=== PATIENT | male | born 1960 | race Caucasian/White ===

== ENCOUNTER → 2017-04-09 | Outpatient (CLI) | payer MEDICARE ==
[2017-04-09 11:31] LABS: ARTERIAL BLOOD BASE EXCESS 5.8 mmol/L; ARTERIAL BLOOD O2 SATURATION 64.6 % (94-98)
== END ==
LOC: OD 11:01
PROVIDERS: ATTEND Internal Medicine Pulmonary Disease
DX: E66.2 Morbid (severe) obesity with alveolar hypoventilation (principal)
CPT/HCPCS: 36600; 82803

== ENCOUNTER 2018-02-07 22:38 | Inpatient (IN) | payer MEDICARE ==
[2018-02-07] MEDS ORDERED: PIPERACILLIN/TAZOBACTAM 3.375 GM VIAL IV ONE (23:21)
[2018-02-07] MEDS ORDERED: VANCOMYCIN HCL INJ 1000 MG VIAL IV ONE (23:21)
--- NOTE | 2018-02-07 23:22 | ER Document Report ---
ED General - General Chief Complaint: Foot Injury Stated Complaint: ALTERED MENTAL STATUS Time Seen by Provider: 02/07/18 22:54 Mode of Arrival: Medic Information source: Patient, Relative - She is noted he has 1 still is actually is I or a's PIR a.m. or a CAD probably IN the TRAVEL OUTSIDE OF THE [place] IN LAST 30 DAYS: No - HPI Notes: Patient is a 57-year-old insulin-dependent diabetic with history of CHF and uncontrolled atrial fibrillation presents emergency department with report of right foot foul-smelling wound that is progressed over the last 2 weeks. He has sensation in the leg and foot, and denies any specific pain or injury that he is aware of. The patient has noted some drainage from the wound and had a fever of 100.5 and was altered at home when family called for EMS. They found the patient to have a temperature of 100.5 and blood sugar 263 with blood pressure 98 rising to 116/88 with fluid bolus. The patient was given 300 normal saline while in route by EMS with Tylenol 975 and arrived afebrile and alert and oriented to person place president and time. Family states he is no longer acting altered. The patient did not realize he was somewhat confused earlier. The patient denies any focal numbness or weakness. He reports no chest pain or shortness of breath or cough. He does report mild dysuria. Patient denies any other skin breakdown. He has a history of previous osteomyelitis of the left hand status post surgical resection of the fourth digit and metacarpal in July 2017. - Related Data Allergies/Adverse Reactions: No Known Allergies Allergy (Unverified 02/07/18 23:02) Past Medical History - General Information source: Patient, Relative - Social History Smoking Status: Never Smoker Frequency of alcohol use: None Drug Abuse: None Lives with: Family Family History: Reviewed & Not Pertinent Review of Systems - Review of Systems Notes: REVIEW OF SYSTEMS: CONSTITUTIONAL : Patient was unaware of any fever, but had temperature 100.5 per EMS. EENT: Denies eye, ear, throat, or mouth pain or symptoms. Denies nasal or sinus congestion or discharge. Denies throat, tongue, or mouth swelling or difficulty swallowing. CARDIOVASCULAR: Denies chest pain. Denies palpitations or racing or irregular heart beat. Denies ankle edema. RESPIRATORY: Denies cough, cold, or chest congestion. Denies shortness of breath, difficulty breathing, or wheezing. GASTROINTESTINAL: Denies abdominal pain or distention. Denies nausea, vomiting , or diarrhea. Denies blood in vomitus, stools, or per rectum. Denies black, tarry stools. Denies constipation. GENITOURINARY: Denies difficulty urinating, painful urination, burning, frequency, blood in urine, or discharge. MUSCULOSKELETAL: Denies back or neck pain or stiffness. Denies joint pain or swelling. SKIN: Reports progression of 2 weeks of a sore on the right foot. HEMATOLOGIC : Denies easy bruising or bleeding. LYMPHATIC: Denies swollen, enlarged glands. NEUROLOGICAL: Denies passing out or loss of consciousness. Denies dizziness or lightheadedness. Denies headache. Denies weakness or paralysis or loss of use of either side. Denies problems with gait or speech. Denies sensory loss, numbness, or tingling. Denies seizures. PSYCHIATRIC: Denies anxiety or stress. Denies depression, suicidal ideation, or homicidal ideation. ALL OTHER SYSTEMS REVIEWED AND NEGATIVE. Dictation was performed using [employer] voice recognition software Physical Exam - Vital signs Vitals: Temp Pulse Resp BP Pulse Ox 98.0 F 83 14 111/64 96 02/07/18 22:45 02/07/18 22:45 02/07/18 22:45 02/07/18 22:45 02/07/18 22:45 - Notes Notes: PHYSICAL EXAMINATION: GENERAL: Somewhat diaphoretic, no obvious distress. HEAD: Atraumatic, normocephalic. EYES: Pupils equal round and reactive to light, extraocular movements intact, sclera anicteric, conjunctiva are normal. ENT: Nares patent, oropharynx clear without exudates. Moist mucous membranes. NECK: Normal range of motion, supple without lymphadenopathy LUNGS: Breath sounds clear to auscultation bilaterally and equal. No wheezes rales or rhonchi. HEART: Regular rate with irregular rhythm consistent with history of atrial fibrillation, 1/6 systolic ejection murmur best auscultated over the apex. ABDOMEN: Soft, nontender, nondistended abdomen. No guarding, no rebound. No masses appreciated. Musculoskeletal: Normal range of motion, no pitting or edema. No cyanosis. NEUROLOGICAL: Cranial nerves grossly intact. Normal speech. Normal motor exams. Sensory mild diminished distally along the toes. PSYCH: Normal mood, normal affect. SKIN: Healed wound on the left hand from previous surgical resection of the fourth finger and metacarpal. Patient has a open stage IV wound to the right lateral foot with surrounding cellulitis that extends through the foot. Patient has 2+ edema left lower extremity with 3+ edema right lower extremity. There is no ascending cellulitis proximal to the ankle. There is no palpable cord. There is a foul odor to the open wound which measures approximately 5 cm x 3 cm to the lateral foot. I am able to appreciate DP pulses on both sides although somewhat weak. Course - Re-evaluation Re-evalutation: 02/07/18 23:33 Blood cultures and lactic acid taken prior to the patient receiving IV Zosyn and vancomycin to cover for possible Pseudomonas versus MRSA infection with diabetic foot ulcer. Discussed with patient and family the need for the patient be admitted for further evaluation and management for diabetic foot ulcer. Also discussed with the patient the possibility that he may require amputation in order to appropriately treat this wound. 02/08/18 02:02 Digoxin level is therapeutic and INR is therapeutic. Patient has evidence for acute kidney injury with a question of dehydration, but there is an elevated BNP at 7600 with patient's chronic history of CHF. The patient has received 650 cc of fluids from EMS combined with antibiotic administration of Zosyn and vancomycin. Current blood pressure is 112/70. Lactic acid is normal without evidence for sepsis. There is no gross evidence for CHF on chest x-ray, but patient has cardiomegaly with a history of CHF. Discussion was undertaken with surgery Dr. Kelley, and he agreed to consult on the patient, but he requested hospitalist consultation and admission and requested possible reversal of anticoagulation and echocardiogram. Discussion was undertaken with the hospitalist Dr. Foreman who agreed to evaluate the patient further. 02/08/18 02:05 02/08/18 02:22 - Vital Signs Vital signs: Temp Pulse Resp BP Pulse Ox 98.0 F 83 14 111/64 96 02/07/18 22:45 02/07/18 22:45 02/07/18 22:45 02/07/18 22:45 02/07/18 22:45 - Laboratory Result Diagrams: 02/07/18 23:21 02/07/18 23:21 Laboratory results interpreted by me: 02/07/18 02/07/18 02/07/18 23:21 23:21 23:21 WBC 18.1 H Hgb 11.3 L Hct 35.2 L MCV 72 L MCH 23.1 L RDW 15.3 H Seg Neuts % (Manual) 80 H Lymphocytes % (Manual) 11 L Abs Neuts (Manual) 14.5 H Abs Monocytes (Manual) 1.6 H PT 31.3 H Sodium 127.1 L Chloride 84 L Carbon Dioxide 34 H BUN 54 H Creatinine 1.65 H Est GFR ( Amer) 52 L Est GFR (Non-Af Amer) 43 L Glucose 250 H POC Glucose ALT 13 L Alkaline Phosphatase 162 H NT-Pro-B Natriuret Pep Albumin 3.0 L 02/07/18 0418 23:21 01:18 WBC Hgb Hct MCV MCH RDW Seg Neuts % (Manual) Lymphocytes % (Manual) Abs Neuts (Manual) Abs Monocytes (Manual) PT Sodium Chloride Carbon Dioxide BUN Creatinine Est GFR ( Amer) Est GFR (Non-Af Amer) Glucose POC Glucose 269 H ALT Alkaline Phosphatase NT-Pro-B Natriuret Pep 7600 H Albumin - EKG Interpretation by Me Rhythm: A.Fib Additional EKG results interpreted by me: 02/07/18 23:57 EKG as interpreted by me showed atrial fibrillation with controlled ventricular response rate of 76. There is no gross evidence for acute MS or ischemia noted. No old EKG available for comparison. Critical Care Note - Critical Care Note Total time excluding time spent on procedures (mins): 48 Discharge - Discharge Clinical Impression: Acute kidney injury (nontraumatic), Hyperglycemia Diabetic foot ulcer Qualifiers: Diabetic foot ulcer location: midfoot Diabetes mellitus type: type 1 Laterality : right Non-pressure ulcer stage: with necrosis of bone Qualified Code(s): E10.621 - Type 1 diabetes mellitus with foot ulcer Osteomyelitis Qualifiers: Osteomyelitis type: other acute Osteomyelitis location: foot Laterality: right Qualified Code(s): M86.171 - Other acute osteomyelitis, right ankle and foot A-fib Qualifiers: Atrial fibrillation type: chronic Qualified Code(s): I48.2 - Chronic atrial fibrillation Fever Qualifiers: Fever type: due to other condition Qualified Code(s): R50.81 - Fever presenting with conditions classified elsewhere Condition: Fair Disposition: ADMITTED INPATIENT Admitting Provider: Hospitalist Unit Admitted: [facility]
[2018-02-07 23:42] LABS: HEMATOCRIT 35.2 % (37.9-51.0); HEMOGLOBIN 11.3 g/dL (13.5-17.0); MEAN CORPUSCULAR HEMOGLOBIN 23.1 pg (27.0-33.4); MEAN CORPUSCULAR HGB CONC 32.2 g/dL (32.0-36.0); MEAN CORPUSCULAR VOLUME 72 fl (80-97); PLATELET COUNT 278 10^3/uL (150-450); RED CELL DISTRIBUTION WIDTH 15.3 % (11.5-14.0); WHITE BLOOD COUNT 18.1 10^3/uL (4.0-10.5)
[2018-02-07 23:49] LABS: INTERNATIONAL RATION (INR) 2.85; PROTHROMBIN TIME 31.3 SEC (11.4-15.4)
[2018-02-08 00:04] LABS: NT PRO BNP 7600 pg/mL (5-900)
[2018-02-08 00:06] LABS: TROPONIN I < 0.012 ng/mL
[2018-02-08 00:12] LABS: ABSOLUTE MONOCYTES # (MANUAL) 1.6 10^3/uL (0.1-1.4); ABSOLUTE NEUTROPHILS# (MANUAL) 14.5 10^3/uL (1.7-8.2); BASOPHILS % (MANUAL) 0 % (0-2); EOSINOPHILS % (MANUAL) 0 % (0-6); LYMPHOCYTES % (MANUAL) 11 % (13-45); MONOCYTES % (MANUAL) 9 % (3-13); SEGMENTED NEUTROPHILS % (MAN) 80 % (42-78); TOTAL CELLS COUNTED 100
[2018-02-08 00:13] LABS: ANISOCYTOSIS SLIGHT; HYPOCHROMASIA 1+; PLATELET COMMENT ADEQUATE; PLATELET LARGE PRESENT; POLYCHROMASIA SLIGHT
[2018-02-08 00:20] LABS: ALANINE AMINOTRANSFERASE 13 U/L (21-72); ALKALINE PHOSPHATASE 162 U/L (38-126); ANION GAP 9 (5-19); ASPARTATE AMINO TRANSFERASE 18 U/L (17-59); BILIRUBIN,DIRECT 0.3 mg/dL (0.0-0.4); BILIRUBIN,TOTAL 0.9 mg/dL (0.2-1.3); BLOOD UREA NITROGEN 54 mg/dL (7-20); CALCIUM 8.8 mg/dL (8.4-10.2); CARBON DIOXIDE 34 mmol/L (22-30); CHLORIDE 84 mmol/L (98-107); DIGOXIN 0.94 ng/mL (0.8-2.0); GLUCOSE 250 mg/dL (75-110); POTASSIUM 4.4 mmol/L (3.6-5.0); SODIUM 127.1 mmol/L (137-145); TOTAL PROTEIN 6.8 g/dL (6.3-8.2)
--- NOTE | 2018-02-08 00:29 | RADIOLOGY REPORT (SQ) ---
EXAM DESCRIPTION: CHEST SINGLE VIEW CLINICAL HISTORY: fever COMPARISON: None. FINDINGS: Single frontal view of the chest. Leads overlie the chest. Tortuosity of thoracic aorta. Cardiomegaly. No consolidation, pneumothorax, or pleural effusion. No displaced rib fractures identified. Upper abdominal soft tissues are unremarkable. IMPRESSION: 1. No acute pulmonary process identified. Cardiomegaly.
--- NOTE | 2018-02-08 00:42 | RADIOLOGY REPORT (SQ) ---
EXAM DESCRIPTION: FOOT RIGHT 2 VIEWS CLINICAL HISTORY: R foot cellulitis / ?osteo COMPARISON: None. FINDINGS: 2 views of the right foot. No acute fracture or dislocation. Osseous destruction of the fifth metatarsal and base of the fifth proximal phalanx with adjacent soft tissue edema/ulcer. Osteopenia. Hallux valgus deformity. Plantar calcaneal spur. Atherosclerotic ossification IMPRESSION: 1. Osseous destruction of the fifth metatarsal and base of the proximal fifth phalanx. These findings suggest osteomyelitis. Correlation with contrast-enhanced MRI could provide additional characterization.
--- NOTE | 2018-02-08 00:50 | PDOC H&P ---
General Chief Complaint: Pains right foot - Diagnosis (1) A-fib Is this a Current Diagnosis?: Yes - Current Medications/Allergies Allergies/Adverse Reactions: No Known Allergies Allergy (Unverified 02/07/18 23:02) Past Medical History Cardiac Medical History: Reports: Atrial Fibrillation, Congestive Heart Failure , Hypertension Endocrine Medical History: Reports: Diabetes Mellitus Type 2 Past Surgical History Past Surgical History: Reports: Orthopedic Surgery - left 4th finger amputation 2016 at [facility]. Due to osteomyeli Family History Family History: Reviewed & Not Pertinent Parental Family History Reviewed: Yes - mother had DM and of Ca Children Family History Reviewed: No Sibling(s) Family History Reviewed.: No Social History Lives with: Family Smoking Status: Never Smoker - Advance Directive Resuscitation Status: Full Code Physical Exam Vital Signs: Temp Pulse Resp BP Pulse Ox 98.0 F 83 14 111/64 96 02/07/18 22:45 02/07/18 22:45 02/07/18 22:45 02/07/18 22:45 02/07/18 22:45 Intake & Output 02/06/18 02/07/18 02/08/18 06:59 06:59 06:59 Weight 131.088 kg General appearance: PRESENT: mild distress, obese Head exam: PRESENT: atraumatic Eye exam: PRESENT: conjunctiva pink Mouth exam: PRESENT: moist Neck exam: PRESENT: full ROM Respiratory exam: PRESENT: clear to auscultation terra Cardiovascular exam: PRESENT: RRR Pulses: PRESENT: normal radial pulses Vascular exam: PRESENT: normal capillary refill GI/Abdominal exam: PRESENT: soft - non tender Rectal exam: PRESENT: deferred Extremities exam: PRESENT: full ROM Musculoskeletal exam: PRESENT: ambulatory Neurological exam: PRESENT: alert, oriented to person, oriented to place, oriented to time, oriented to situation Psychiatric exam: PRESENT: appropriate affect Skin exam: PRESENT: erythema - Right lateral foot with a 5x8 cm ulcer with dark discoloration the whole ulcer with possible bone exposed. There is some redness around the foot ulcer. There is erythema on the dorsum of the foot Impression/Plan Impression: Diabetic ulceration right lateral foot Plan: Hydrate and start IV antibiotics Correct coumadin effect and hold coumadin Correct BS and other lab abnormality Consult Hospitalist for DM and A fib
[2018-02-08] MEDS ORDERED: DEXTROSE 40% GEL 15 GM TUBE PO PRN ×2 (01:06)
[2018-02-08] MEDS ORDERED: DEXTROSE 50%-WATER 25 GM/50 ML DISP.SYRIN IV PRN ×2 (01:06)
[2018-02-08] MEDS ORDERED: GLUCAGON,HUMAN RECOMB 1 MG INJ IM PRN (01:06)
[2018-02-08] MEDS ORDERED: NORMAL SALINE 1000 ML 1,000 ML IV PRN ×2 (01:15→13:37)
[2018-02-08 03:39] LABS: ARTERIAL BLOOD BASE EXCESS 4.1 mmol/L; ARTERIAL BLOOD H2CO3 1.39 mmol/L (1.05-1.35); ARTERIAL BLOOD HCO3 29.2 mmol/L (20-26); ARTERIAL BLOOD PCO2 46.1 mmHg (35-45); ARTERIAL BLOOD PH 7.42 (7.35-7.45); ARTERIAL BLOOD PO2 80.4 mmHg (80-100); ARTERIAL BLOOD TOTAL CO2 30.6 mmol/L (23-27)
[2018-02-08 03:41] LABS: ARTERIAL BLOOD FIO2 ROOM AIR
--- NOTE | 2018-02-08 04:00 | PDOC H&P ---
History of Present Illness Admission Date/PCP: 02/08/18 03:38 Patient complains of: Altered mental status History of Present Illness: GERALDINE TIRADO is a 57 year old male with past medical history of insulin- dependent diabetes, congestive heart failure, atrial fibrillation on Coumadin, chronic pain on morphine, osteomyelitis of the left hand and right foot, obesity and debility. In the emergency room he is found to have hypotension that responded to bolus, a fever of 100.5, right foot diabetic foot ulcer which is foul-smelling with necrotic exudate. His mental status has returned to baseline without intervention. Denies deficits or weakness. Labs reveal prerenal azotemia, acute renal failure, hyponatremia and he is referred to the hospitalist for admission. He denies recent change in medications including Zanaflex and morphine. Past Medical History Cardiac Medical History: Reports: Atrial Fibrillation, Congestive Heart Failure , Hypertension Pulmonary Medical History: Reports: None EENT Medical History: Reports: None Neurological Medical History: Reports: None Endocrine Medical History: Reports: Diabetes Mellitus Type 2, Obesity Renal/ Medical History: Reports: None Malignancy Medical History: Reports: None GI Medical History: Reports: None Musculoskeltal Medical History: Reports: Other - Osteomyelitis of the left hand and right foot Skin Medical History: Reports: Other - Multiple poorly healed ulcers of the hands bilaterally and right foot Psychiatric Medical History: Reports: None Denies: Alcohol Dependency, Attention Deficit Hyperactivity Disorder Traumatic Medical History: Reports: None Hematology: Reports: None Infectious Medical History: Reports: None Past Surgical History Past Surgical History: Reports: Orthopedic Surgery - left 4th finger amputation 2016 at [facility]. Due to osteomyeli Social History Information Source: Patient, [facility] Records Lives with: Family Smoking Status: Never Smoker Frequency of Alcohol Use: None Hx Recreational Drug Use: No Drugs: None - Advance Directive Resuscitation Status: Full Code Family History Family History: DM, Hypertension Parental Family History Reviewed: Yes Children Family History Reviewed: Yes Sibling(s) Family History Reviewed.: Yes Medication/Allergy Allergies/Adverse Reactions: No Known Allergies Allergy (Unverified 02/07/18 23:02) Review of Systems Constitutional: PRESENT: as per HPI, fatigue, night sweats, weakness. ABSENT: chills, fever(s), headache(s), weight gain, weight loss Eyes: ABSENT: visual disturbances Ears: ABSENT: hearing changes Cardiovascular: ABSENT: chest pain, dyspnea on exertion, edema, orthropnea, palpitations Respiratory: ABSENT: cough, hemoptysis Gastrointestinal: ABSENT: abdominal pain, constipation, diarrhea, hematemesis, hematochezia, nausea, vomiting Genitourinary: ABSENT: dysuria, hematuria Musculoskeletal: PRESENT: as per HPI, other. ABSENT: joint swelling Integumentary: PRESENT: as per HPI, erythema, lesions, pruritus, wounds. ABSENT : rash Neurological: PRESENT: numbness. ABSENT: abnormal gait, abnormal speech, confusion, dizziness, focal weakness, syncope Psychiatric: ABSENT: anxiety, depression, homidical ideation, suicidal ideation Endocrine: ABSENT: cold intolerance, heat intolerance, polydipsia, polyuria Hematologic/Lymphatic: ABSENT: easy bleeding, easy bruising Physical Exam Vital Signs: Temp Pulse Resp BP Pulse Ox 98.0 F 83 14 111/64 96 02/07/18 22:45 02/07/18 22:45 02/07/18 22:45 02/07/18 22:45 02/07/18 22:45 General appearance: PRESENT: cooperative, disheveled, mild distress, well- developed, well-nourished Head exam: PRESENT: atraumatic, normocephalic Eye exam: PRESENT: conjunctiva pink, EOMI, PERRLA. ABSENT: scleral icterus Ear exam: PRESENT: normal external ear exam Mouth exam: PRESENT: moist, tongue midline Neck exam: ABSENT: carotid bruit, JVD, lymphadenopathy, thyromegaly Respiratory exam: PRESENT: clear to auscultation terra. ABSENT: rales, rhonchi, wheezes Cardiovascular exam: PRESENT: irregular rhythm, tachycardia. ABSENT: diastolic murmur, rubs, systolic murmur Pulses: PRESENT: other - Faint pedal pulses bilaterally. ABSENT: normal dorsalis pedis pul Vascular exam: PRESENT: pallor. ABSENT: normal capillary refill GI/Abdominal exam: PRESENT: normal bowel sounds, soft. ABSENT: distended, guarding, mass, organolmegaly, rebound, tenderness Rectal exam: PRESENT: deferred Extremities exam: PRESENT: full ROM, +1 edema. ABSENT: calf tenderness, clubbing, pedal edema Musculoskeletal exam: PRESENT: other - Joint swelling of the hands with scarring and ulcers of the terminal digits Neurological exam: PRESENT: alert, awake, oriented to person, oriented to place , oriented to time, oriented to situation, CN II-XII grossly intact. ABSENT: motor sensory deficit Psychiatric exam: PRESENT: appropriate affect, normal mood. ABSENT: homicidal ideation, suicidal ideation Skin exam: PRESENT: erythema, warm, other - Please see history of present illness, muscle skeletal note. ABSENT: cyanosis, dry, intact, rash Results Impressions: Chest X-Ray 02/07/18 23:17 IMPRESSION: 1. No acute pulmonary process identified. Cardiomegaly. Foot X-Ray 02/07/18 23:17 IMPRESSION: 1. Osseous destruction of the fifth metatarsal and base of the proximal fifth phalanx. These findings suggest osteomyelitis. Correlation with contrast-enhanced MRI could provide additional characterization. Assessment & Plan - Diagnosis (1) A-fib Qualifiers: Atrial fibrillation type: chronic Qualified Code(s): I48.2 - Chronic atrial fibrillation Is this a current diagnosis for this admission?: Yes Plan: Hold Coumadin initiate heparin as bridge to surgery. Rate controlled on current regimen (2) Acute kidney injury (nontraumatic) Is this a current diagnosis for this admission?: Yes Plan: Suspect largely prerenal azotemia, IV fluid challenge reevaluate chemistry, avoid nephrotoxic meds and doses. (3) Diabetic foot ulcer Qualifiers: Diabetic foot ulcer location: midfoot Diabetes mellitus type: type 1 Laterality: right Non-pressure ulcer stage: with necrosis of bone Qualified Code(s): E10.621 - Type 1 diabetes mellitus with foot ulcer; L97.414 - Non- pressure chronic ulcer of right heel and midfoot with necrosis of bone; L97.414 - Non-pressure chronic ulcer of right heel and midfoot with necrosis of bone; L97.414 - Non-pressure chronic ulcer of right heel and midfoot with necrosis of bone; L97.414 - Non-pressure chronic ulcer of right heel and midfoot with necrosis of bone Is this a current diagnosis for this admission?: Yes Plan: Surgery consultation (4) Osteomyelitis Qualifiers: Osteomyelitis type: other acute Osteomyelitis location: foot Laterality: right Qualified Code(s): M86.171 - Other acute osteomyelitis, right ankle and foot Is this a current diagnosis for this admission?: Yes Plan: Surgery consultation, consider PICC line - Time Time Spent: 30 to 50 Minutes - Inpatient Certification Medical Necessity: Need Close Monitoring Due to Risk of Patient Decompensation
[2018-02-08] MEDS ORDERED: ACETAMINOPHEN 325 MG TABLET PO PRN (04:24)
[2018-02-08] MEDS ORDERED: MAG HYDROX/AL HYDROX/SIMETH SUSP 30 ML UDCUP PO PRN (04:24)
[2018-02-08] MEDS ORDERED: IPRATROPIUM/ALBUTEROL 0.5-2.5 MG/3 ML AMPUL NEB PRN (04:24)
[2018-02-08] MEDS ORDERED: MAGNESIUM HYDROXIDE SUSP 30 ML UDCUP PO PRN (04:24)
[2018-02-08] MEDS ORDERED: HEPARIN SOD (PORCINE) 1,000 UNIT/ML 10 ML VIAL IV ONE (04:28)
[2018-02-08] MEDS ORDERED: HEPARIN SODIUM,PORCINE/D5W 25,000 UNIT/250 ML RTUINJ IV PRN (04:28)
[2018-02-08 05:00] LABS: HEMATOCRIT 33.8 % (37.9-51.0); HEMOGLOBIN 11.2 g/dL (13.5-17.0); MEAN CORPUSCULAR HEMOGLOBIN 23.4 pg (27.0-33.4); MEAN CORPUSCULAR VOLUME 71 fl (80-97); PLATELET COUNT 259 10^3/uL (150-450); RED BLOOD COUNT 4.77 10^6/uL (4.35-5.55); RED CELL DISTRIBUTION WIDTH 15.5 % (11.5-14.0); WHITE BLOOD COUNT 20.5 10^3/uL (4.0-10.5)
[2018-02-08 05:06] LABS: INTERNATIONAL RATION (INR) 2.74; PROTHROMBIN TIME 30.4 SEC (11.4-15.4)
[2018-02-08 05:21] LABS: APPEARANCE,URINE CLOUDY; BILIRUBIN,URINE NEGATIVE (NEGATIVE); CALCIUM OXALATE CRYSTALS,URINE RARE /HPF; COLOR,URINE YELLOW; GLUCOSE, URINE NEGATIVE (NEGATIVE); KETONES,URINE NEGATIVE (NEGATIVE); LEUKOCYTE ESTERASE,URINE LARGE (NEGATIVE); NITRITE,URINE NEGATIVE (NEGATIVE); PROTEIN,URINE 30 mg/dL (NEGATIVE); TRIPLE PHOSPHATE CRYSTAL,URINE FEW /HPF; URINE SPECIFIC GRAVITY 1.013; UROBILINOGEN,URINE NEGATIVE mg/dL (<2.0)
[2018-02-08 05:25] LABS: ABSOLUTE LYMPHOCYTES# (MANUAL) 0.8 10^3/uL (0.5-4.7); ABSOLUTE MONOCYTES # (MANUAL) 1.8 10^3/uL (0.1-1.4); ABSOLUTE NEUTROPHILS# (MANUAL) 17.8 10^3/uL (1.7-8.2); BAND NEUTROPHILS % (MANUAL) 2 % (3-5); BASOPHILS % (MANUAL) 0 % (0-2); EOSINOPHILS % (MANUAL) 0 % (0-6); LYMPHOCYTES % (MANUAL) 4 % (13-45); MONOCYTES % (MANUAL) 9 % (3-13); SEGMENTED NEUTROPHILS % (MAN) 85 % (42-78); TOTAL CELLS COUNTED 100
[2018-02-08 05:26] LABS: ANISOCYTOSIS SLIGHT; PLATELET COMMENT ADEQUATE; TOXIC GRANULATION SLIGHT
[2018-02-08 05:38] LABS: ANION GAP 11 (5-19); BLOOD UREA NITROGEN 54 mg/dL (7-20); CALCIUM 8.5 mg/dL (8.4-10.2); CARBON DIOXIDE 30 mmol/L (22-30); CHLORIDE 88 mmol/L (98-107); GLUCOSE 300 mg/dL (75-110); POTASSIUM 3.8 mmol/L (3.6-5.0); SODIUM 129.2 mmol/L (137-145)
[2018-02-08] MEDS ORDERED: HEPARIN SOD (PORCINE) 1,000 UNIT/ML 10 ML VIAL IV PRN (07:29)
--- NOTE | 2018-02-08 10:42 | EKG REPORT ---
SEVERITY:- ABNORMAL ECG - ATRIAL FIBRILLATION, V-RATE 61-85 PROLONGED QT INTERVAL : Confirmed by: Juice Tyson 08-Feb-2018 10:42:09
[2018-02-08] MEDS: DOCUSATE SODIUM 100 MG CAPSULE PO SCH ×2 (11:22→17:07)
[2018-02-08] MEDS: INSULIN LISPRO 100 UNIT/ML 3 ML VIAL SUBCUT PRN ×3 (12:12→23:04)
[2018-02-08] MEDS ORDERED: NORMAL SALINE 1000 ML 1,000 ML IV ONE (13:36)
[2018-02-08] MEDS ORDERED: VANCOMYCIN HCL 0 MG in DEXTROSE 5%-WATER 250 ML IV NR (13:45)
--- NOTE | 2018-02-08 13:48 | XCELERA REPORT ---
[address] [address] Transthoracic Echocardiogram Report Name: GERALDINE TIRADO Age: 57 yrs Gender: Male : 1960 Patient Status: Inpatient Patient Location: [address] [place] [address] Study Date: 02/08/2018 09:06 AM Height: 76 in Weight: 289 lb BSA: 2.6 m2 Procedure: A complete two-dimensional transthoracic echocardiogram was performed (2D, M-mode, spectral and color flow Doppler). The study was technically difficult with many images being suboptimal in quality. Reason For Study: pre op eval Ordering Physician: EDMUNDO EVANS Performed By: Elysia Mcclelland Interpretation Summary The study was technically difficult with many images being suboptimal in quality. Left ventricular systolic function is low normal. There is mild concentric left ventricular hypertrophy. The left ventricle is grossly normal size. LV diastolic function could not be adequately assessed. Wall motion cannot be accurately commented on, but no definite regional wall motion abnormalities noted. The right ventricle is mildly dilated. The right ventricular systolic function is normal. The right atrium is mildly dilated. The left atrium is mildly dilated. There is no mitral valve stenosis. There is a trace amount of mitral regurgitation There is no aortic valve stenosis No aortic regurgitation is present. There is a trace to mild amount of tricuspid regurgitation There is mild pulmonary hypertension by echo Right ventricular systolic pressure is estimated to be elevated at 30- 40mmHg. The aortic root is not well visualized but is probably normal size. The inferior vena cava was not well visualized Small pericardial effusion. There are no echocardiographic or Doppler indications for cardiac tamponade MMode/2D Measurements & Calculations RVDd: 3.2 cm LVIDd: 5.2 cm FS: 36.4 % Ao root diam: 3.3 cm IVSd: 1.3 cm LVIDs: 3.3 cm EDV(Teich): 128.1 ml LVPWd: 1.3 cm ESV(Teich): 43.9 ml Ao root area: 8.5 cm2 EF(Teich): 65.7 % LA dimension: 4.2 cm Doppler Measurements & Calculations MV E max melany: MV P1/2t max melany: Ao V2 max: LV V1 max P.3 cm/sec 95.8 cm/sec 138.5 cm/sec 5.6 mmHg MV P1/2t: 62.5 msec Ao max PG: LV V1 max: 7.7 mmHg 118.0 cm/sec MVA(P1/2t): 3.5 cm2 MV dec slope: 448.6 cm/sec2 PA V2 max: PI end-d melany: TR max melany: 88.8 cm/sec 109.9 cm/sec 278.3 cm/sec PA max PG: TR max P.2 mmHg 31.0 mmHg Left Ventricle The left ventricle is grossly normal size. There is mild concentric left ventricular hypertrophy. Left ventricular systolic function is low normal. LV diastolic function could not be adequately assessed. Wall motion cannot be accurately commented on, but no definite regional wall motion abnormalities noted. Right Ventricle The right ventricle is mildly dilated. There is normal right ventricular wall thickness. The right ventricular systolic function is normal. Atria The right atrium is mildly dilated. The left atrium is mildly dilated. Interarterial septum not well visualized and not well dopplered. Cannot comment on ASD/PFO presence. Mitral Valve The mitral valve is grossly normal. There is no mitral valve stenosis. There is a trace amount of mitral regurgitation. Aortic Valve The aortic valve is grossly normal. There is no aortic valve stenosis. No aortic regurgitation is present. Tricuspid Valve The tricuspid valve is not well visualized, but is grossly normal. There is no tricuspid stenosis. There is a trace to mild amount of tricuspid regurgitation. There is mild pulmonary hypertension by echo. Right ventricular systolic pressure is estimated to be elevated at 30-40mmHg. Pulmonic Valve The pulmonic valve is not well visualized. Great Vessels The aortic root is not well visualized but is probably normal size. The inferior vena cava was not well visualized. Effusions Small pericardial effusion. There are no echocardiographic or Doppler indications for cardiac tamponade. : EDMUNDO EVANS > Juice Tyson
--- NOTE | 2018-02-08 14:52 | PDOC PROGRESS REPORT ---
Subjective Progress Note for:: 02/08/18 Subjective:: No complaints. Patient states that wound and he is left foot started as a blister Review of systems All organ systems evaluated and negative except as in subjective All significant diagnostics and laboratories had been reviewed Reason For Visit: ARF,DIABETES,AFIB,DIABETIC FOOT ULCER Physical Exam Vital Signs: Temp Pulse Resp BP Pulse Ox 98.0 F 83 11 L 112/63 95 02/07/18 22:45 02/07/18 22:45 02/08/18 07:01 02/08/18 07:00 02/08/18 07:01 Intake & Output 02/07/18 02/08/18 02/09/18 06:59 06:59 06:59 Output Total 700 Balance -700 General appearance: PRESENT: cooperative, morbidly obese Head exam: PRESENT: atraumatic, normocephalic Eye exam: PRESENT: EOMI, PERRLA Ear exam: PRESENT: normal external ear exam Mouth exam: PRESENT: moist Neck exam: PRESENT: full ROM. ABSENT: JVD, lymphadenopathy, tenderness Respiratory exam: PRESENT: clear to auscultation terra Cardiovascular exam: PRESENT: irregular rhythm. ABSENT: diastolic murmur, RRR, systolic murmur Vascular exam: PRESENT: normal capillary refill GI/Abdominal exam: PRESENT: normal bowel sounds, soft. ABSENT: tenderness Extremities exam: PRESENT: full ROM - There is a necrotic ulcer noted to the plantar lateral aspect of left foot. Foul-smelling. Food appears swollen and erythemic on the dorsal aspect Musculoskeletal exam: ABSENT: ambulatory Neurological exam: PRESENT: alert, oriented to person, oriented to place, oriented to time, oriented to situation, CN II-XII grossly intact Psychiatric exam: PRESENT: depressed Skin exam: PRESENT: pallor Results Laboratory Results: 02/08/18 04:45 02/08/18 04:45 02/08/18 02/08/18 02/08/18 04:45 04:45 04:45 WBC 20.5 H RBC 4.77 Hgb 11.2 L Hct 33.8 L MCV 71 L MCH 23.4 L MCHC 33.0 RDW 15.5 H Plt Count 259 Seg Neutrophils % Not Reportable Lymphocytes % Not Reportable Monocytes % Not Reportable Eosinophils % Not Reportable Basophils % Not Reportable Absolute Neutrophils Not Reportable Absolute Lymphocytes Not Reportable Absolute Monocytes Not Reportable Absolute Eosinophils Not Reportable Absolute Basophils Not Reportable Sodium 129.2 L Potassium 3.8 Chloride 88 L Carbon Dioxide 30 Anion Gap 11 BUN 54 H Creatinine 1.63 H Est GFR ( Amer) 53 L Est GFR (Non-Af Amer) 44 L Glucose 300 H Calcium 8.5 Urine Color YELLOW Urine Appearance CLOUDY Urine pH 8.0 Ur Specific [place] 1.013 Urine Protein 30 H Urine Glucose (UA) NEGATIVE Urine Ketones NEGATIVE Urine Blood SMALL H Urine Nitrite NEGATIVE Ur Leukocyte Esterase LARGE H Urine WBC (Auto) >182 Urine RBC (Auto) 11 Impressions: Chest X-Ray 02/07/18 23:17 IMPRESSION: 1. No acute pulmonary process identified. Cardiomegaly. Foot X-Ray 02/07/18 23:17 IMPRESSION: 1. Osseous destruction of the fifth metatarsal and base of the proximal fifth phalanx. These findings suggest osteomyelitis. Correlation with contrast-enhanced MRI could provide additional characterization. Assessment & Plan - Diagnosis (1) A-fib Qualifiers: Atrial fibrillation type: chronic Qualified Code(s): I48.2 - Chronic atrial fibrillation Is this a current diagnosis for this admission?: Yes Plan: Stable (2) Acute kidney injury (nontraumatic) Is this a current diagnosis for this admission?: Yes Plan: Continue IV fluids and trend (3) Diabetic foot ulcer Qualifiers: Diabetic foot ulcer location: midfoot Diabetes mellitus type: type 2 Laterality: right Non-pressure ulcer stage: with necrosis of bone Qualified Code(s): E11.621 - Type 2 diabetes mellitus with foot ulcer; L97.414 - Non- pressure chronic ulcer of right heel and midfoot with necrosis of bone; L97.414 - Non-pressure chronic ulcer of right heel and midfoot with necrosis of bone; L97.414 - Non-pressure chronic ulcer of right heel and midfoot with necrosis of bone; L97.414 - Non-pressure chronic ulcer of right heel and midfoot with necrosis of bone Is this a current diagnosis for this admission?: Yes Plan: Will place patient on vancomycin and Zosyn. Patient had been seen by surgery and likely he will require a BKA (4) Hyperglycemia Is this a current diagnosis for this admission?: Yes Plan: Will place patient on Lantus, pre-meal Humalog and continue Humalog sliding scale with bedside glucose before meals and at bedtime. Will order 1 L normal saline bolus and will keep him fluids aiming to control hyperglycemia prior to surgery (5) Osteomyelitis Qualifiers: Osteomyelitis type: other acute Osteomyelitis location: foot Laterality: right Qualified Code(s): M86.171 - Other acute osteomyelitis, right ankle and foot Is this a current diagnosis for this admission?: Yes Plan: May need BKA - Time Time Spent with patient: 15-24 minutes Medications reviewed and adjusted accordingly: Yes Anticipated discharge: Acute Rehab Within: within 72 hours - Inpatient Certification Based on my medical assessment, after consideration of the patient's comorbidities, presenting symptoms, or acuity I expect that the services needed warrant INPATIENT care.: Yes I certify that my determination is in accordance with my understanding of Medicare's requirements for reasonable and necessary INPATIENT services [42 CFR 412.3e].: Yes Medical Necessity: Need Close Monitoring Due to Risk of Patient Decompensation, Need For IV Fluids, Need for IV Antibiotics
[2018-02-08] MEDS ORDERED: ARIPIPRAZOLE 5 MG TABLET PO ONE (15:00)
[2018-02-08] MEDS ORDERED: PHYTONADIONE INJ 10 MG/1 ML AMPULE SUBCUT ONE (15:06)
[2018-02-08] MEDS: INSULIN LISPRO 100 UNIT/ML 3 ML VIAL SUBCUT SCH (15:07)
[2018-02-08] MEDS: VANCOMYCIN HCL 1,500 MG in DEXTROSE 5%-WATER 250 ML IV SCH (15:20)
[2018-02-08] MEDS ORDERED: VENLAFAXINE HCL 37.5 MG CAP.SR.24H PO ONE (16:00)
--- NOTE | 2018-02-08 16:21 | RADIOLOGY REPORT (SQ) ---
EXAM DESCRIPTION: ARTERIAL LOWER EXTREM BILAT COMPLETED DATE/TIME: 02/08/2018 3:58 pm REASON FOR STUDY: check blood supply to lower extremities which may COMPARISON: Right foot films 02/08/2018 TECHNIQUE: Dynamic and static rg scale and color images acquired of the lower extremity arteries. Additional selected spectral images recorded. ABIs were not performed, patient could not tolerate b lood pressure cuff inflated at the ankle. LIMITATIONS: None. FINDINGS: RIGHT LEG: ABIS: Not performed INFLOW ARTERIES: Normal, no obstruction evident. FEMORAL ARTERIES:Multiphasic waveforms. Normal, no velocity elevation to suggest focal stenosis. Norm al color Doppler evaluation. No aneurysm. POPLITEAL ARTERY:Multiphasic waveforms. Normal, no velocity elevation to suggest focal stenosis. Norm al color Doppler evaluation. No aneurysm. PATENT TIBIOPERONEAL TRUNK AND 3 VESSEL RUNOFF: Yes, normal vessels. TBI: Not performed. OTHER: No other significant finding. LEFT LEG: ABIS: Not performed INFLOW ARTERIES: Normal, no obstruction evident. FEMORAL ARTERIES:Multiphasic waveforms. Normal, no velocity elevation to suggest focal stenosis. Norm al color Doppler evaluation. No aneurysm. POPLITEAL ARTERY:Multiphasic waveforms. Normal, no velocity elevation to suggest focal stenosis. Norm al color Doppler evaluation. No aneurysm. PATENT TIBIOPERONEAL TRUNK AND 3 VESSEL RUNOFF: Yes, normal vessels. TBI: Not performed. OTHER: No other significant finding. IMPRESSION: NORMAL BILATERAL LOWER EXTREMITY ARTERIAL DOPPLER. COMMENT: [facility] NORMAL: Greater than 1.0 MINIMAL DISEASE: 0.9 to 1.0 CLAUDICATION: 0.5 to 0.9 SEVERE ARTERIAL DISEASE: Less than 0.5 [facility] NORMAL: Greater than 1.0 (1.2 If Heavy Calcifications) NORMAL TO MILD ISCHEMIA: 0.8 to 1.0 MODERATE ISCHEMIA: 0.4 to 0.8 SEVERE ISCHEMIA: Less than 0.4 TECHNICAL DOCUMENTATION: JOB ID: [id number] [employer]- All Rights Reserved Reading location - IP/workstation name: [facility]-[email or web address]
[2018-02-08] MEDS: ASCORBIC ACID 500 MG TABLET PO SCH (17:05)
[2018-02-08] MEDS: PIPERACILLIN SODIUM/TAZOBACTAM 3.375 GM in NORMAL SALINE 100 ML IV SCH ×2 (17:07→23:15)
[2018-02-08] MEDS: INSULIN DETEMIR 100 UNIT/ML 3 ML PEN SUBCUT SCH (23:03)
--- NOTE | 2018-02-08 23:54 | OPERATIVE REPORT E ---
Operative Report NAME: GERALDINE TIRADO : 1960 AGE: 57Y DATE OF SURGERY: 02/08/2018 ROOM: 327 PREOPERATIVE DIAGNOSIS: NECROTIC DARK TISSUE ON THE RIGHT LATERAL FOOT THAT IS FOUL SMELLING. POSTOPERATIVE DIAGNOSIS: NECROTIC DARK TISSUE ON THE RIGHT LATERAL FOOT THAT IS FOUL SMELLING. PROCEDURE: Partial debridement of necrotic tissue along the right lateral foot. SURGEON: DAIANA MIRAMONTES M.D. DESCRIPTION OF PROCEDURE: The patient was in supine position and the right leg held elevated by the nurse. Sharp debridement of some of the necrotic tissue was done using scissors. There is foul-smelling drainage. Also, the cellulitis appears to be getting towards the area of the ankle. The patient tolerated the procedure well. A new dressing was placed. PLAN: Patient to possibly need a below-knee amputation. I explained this to the patient, and he seems to be agreeable. We will keep him n.p.o. tonight and recheck his INR and PT. DICTATING PHYSICIAN: DAIANA MIRAMONTES M.D. [id number] PHY#: [id number] ID: [id number] JOB#: [id number] ACCT: [id number] cc:DAIANA MIRAMONTES M.D. >
[2018-02-09] MEDS: VANCOMYCIN HCL 1,500 MG in DEXTROSE 5%-WATER 250 ML IV SCH ×3 (03:34→21:50)
[2018-02-09] MEDS: PIPERACILLIN SODIUM/TAZOBACTAM 3.375 GM in NORMAL SALINE 100 ML IV SCH ×3 (05:58→18:06)
[2018-02-09 06:19] LABS: HEMATOCRIT 33.9 % (37.9-51.0); HEMOGLOBIN 10.9 g/dL (13.5-17.0); MEAN CORPUSCULAR HEMOGLOBIN 23.1 pg (27.0-33.4); MEAN CORPUSCULAR HGB CONC 32.1 g/dL (32.0-36.0); MEAN CORPUSCULAR VOLUME 72 fl (80-97); PLATELET COUNT 222 10^3/uL (150-450); RED BLOOD COUNT 4.71 10^6/uL (4.35-5.55); RED CELL DISTRIBUTION WIDTH 15.8 % (11.5-14.0); WHITE BLOOD COUNT 14.4 10^3/uL (4.0-10.5)
[2018-02-09 06:34] LABS: ANION GAP 9 (5-19); BLOOD UREA NITROGEN 42 mg/dL (7-20); CALCIUM 8.4 mg/dL (8.4-10.2); CARBON DIOXIDE 32 mmol/L (22-30); CHLORIDE 94 mmol/L (98-107); GLUCOSE 218 mg/dL (75-110); POTASSIUM 3.2 mmol/L (3.6-5.0); SODIUM 135.2 mmol/L (137-145)
[2018-02-09 06:38] LABS: INTERNATIONAL RATION (INR) 2.25; PROTHROMBIN TIME 26.1 SEC (11.4-15.4)
[2018-02-09] MEDS: INSULIN LISPRO 100 UNIT/ML 3 ML VIAL SUBCUT SCH ×3 (08:50→17:51)
[2018-02-09] MEDS: INSULIN LISPRO 100 UNIT/ML 3 ML VIAL SUBCUT PRN ×2 (08:50→17:50)
[2018-02-09] MEDS ORDERED: VENLAFAXINE HCL 37.5 MG CAP.SR.24H PO SCH (10:00)
[2018-02-09] MEDS: ASCORBIC ACID 500 MG TABLET PO SCH ×2 (10:32→18:46)
[2018-02-09] MEDS: DOCUSATE SODIUM 100 MG CAPSULE PO SCH ×2 (10:32→17:54)
[2018-02-09] MEDS: MULTIVITAMIN TABLET PO SCH (10:32)
[2018-02-09] MEDS: ARIPIPRAZOLE 5 MG TABLET PO SCH (10:32)
[2018-02-09] MEDS: INSULIN DETEMIR 100 UNIT/ML 3 ML PEN SUBCUT SCH (10:32)
[2018-02-09] MEDS ORDERED: NORMAL SALINE 250 ML IV PRN ×2 (12:33)
[2018-02-09] MEDS ORDERED: PHYTONADIONE 5 MG TABLET PO ONE (13:30)
[2018-02-09] MEDS ORDERED: FUROSEMIDE INJ/PF 20 MG/2 ML SDV IV ONE (14:00)
[2018-02-09] MEDS ORDERED: (PENDING PHARMACY ID) (Clonazepam [Klonopin] 0.5 MG) PO PRN (16:40)
[2018-02-09] MEDS ORDERED: METOPROLOL SUCCINATE 50 MG TAB.SR.24H PO ONE (16:43)
[2018-02-09] MEDS ORDERED: CLONAZEPAM 1 MG TABLET PO PRN (16:44)
--- NOTE | 2018-02-09 16:55 | PDOC PROGRESS REPORT ---
Subjective Progress Note for:: 02/09/18 Subjective:: No complaints. Patient to go for surgery likely in a.m. pending to improvement of INR Review of systems All organ systems evaluated and negative except as in subjective All significant diagnostics and laboratories had been reviewed Reason For Visit: ARF,DIABETES,AFIB,DIABETIC FOOT ULCER Physical Exam Vital Signs: Temp Pulse Resp BP Pulse Ox 98.7 F 101 H 20 154/82 H 95 02/09/18 15:48 02/09/18 15:48 02/09/18 15:48 02/09/18 15:48 02/09/18 15:48 Intake & Output 02/08/18 02/09/18 02/10/18 06:59 06:59 06:59 Intake Total 3950 0 Output Total 700 1900 1100 Balance -700 0 -1100 Weight 132.6 kg General appearance: PRESENT: no acute distress, cooperative, obese Head exam: PRESENT: atraumatic, normocephalic Eye exam: PRESENT: conjunctiva pink, EOMI, PERRLA Ear exam: PRESENT: normal external ear exam Mouth exam: PRESENT: moist Neck exam: PRESENT: full ROM. ABSENT: JVD, lymphadenopathy, tenderness Respiratory exam: PRESENT: clear to auscultation terra Cardiovascular exam: PRESENT: irregular rhythm. ABSENT: diastolic murmur, systolic murmur GI/Abdominal exam: PRESENT: normal bowel sounds, soft. ABSENT: tenderness Extremities exam: PRESENT: full ROM, +2 edema Musculoskeletal exam: PRESENT: ambulatory Neurological exam: PRESENT: alert, awake, oriented to person, oriented to place , oriented to time, oriented to situation, CN II-XII grossly intact Psychiatric exam: PRESENT: appropriate affect, normal mood Skin exam: PRESENT: intact, normal color Results Laboratory Results: 02/09/18 05:49 02/09/18 05:49 02/09/18 02/09/18 02/09/18 05:49 05:49 13:05 WBC 14.4 H RBC 4.71 Hgb 10.9 L Hct 33.9 L MCV 72 L MCH 23.1 L MCHC 32.1 RDW 15.8 H Plt Count 222 Sodium 135.2 L Potassium 3.2 L Chloride 94 L Carbon Dioxide 32 H Anion Gap 9 BUN 42 H Creatinine 1.10 Est GFR ( Amer) > 60 Est GFR (Non-Af Amer) > 60 Glucose 218 H Calcium 8.4 Blood Type O POSITIVE 02/09/18 13:05 NT-Pro-B Natriuret Pep 4920 H Impressions: Chest X-Ray 02/07/18 23:17 IMPRESSION: 1. No acute pulmonary process identified. Cardiomegaly. Foot X-Ray 02/07/18 23:17 IMPRESSION: 1. Osseous destruction of the fifth metatarsal and base of the proximal fifth phalanx. These findings suggest osteomyelitis. Correlation with contrast-enhanced MRI could provide additional characterization. Lower Extremity Ultrasound 02/08/18 00:00 IMPRESSION: NORMAL BILATERAL LOWER EXTREMITY ARTERIAL DOPPLER. Assessment & Plan - Diagnosis (1) A-fib Qualifiers: Atrial fibrillation type: chronic Qualified Code(s): I48.2 - Chronic atrial fibrillation Is this a current diagnosis for this admission?: Yes Plan: Stable. Add Toprol-XL. To order vitamin K and fresh frozen plasma to reverse Coumadin. Trend INR. Anticipate to place patient on Eliquis once is over with surgery (2) Acute kidney injury (nontraumatic) Is this a current diagnosis for this admission?: Yes Plan: Improved and to discontinue IV fluids (3) Diabetic foot ulcer Qualifiers: Diabetic foot ulcer location: midfoot Diabetes mellitus type: type 2 Laterality: right Non-pressure ulcer stage: with necrosis of bone Qualified Code(s): E11.621 - Type 2 diabetes mellitus with foot ulcer; L97.414 - Non- pressure chronic ulcer of right heel and midfoot with necrosis of bone; L97.414 - Non-pressure chronic ulcer of right heel and midfoot with necrosis of bone; L97.414 - Non-pressure chronic ulcer of right heel and midfoot with necrosis of bone; L97.414 - Non-pressure chronic ulcer of right heel and midfoot with necrosis of bone Is this a current diagnosis for this admission?: Yes Plan: Continue vancomycin and Zosyn. Continue multivitamins and vitamin C. For BKA likely in AM (4) Hyperglycemia Is this a current diagnosis for this admission?: Yes Plan: Continue current management and was anxious long-acting and pre-meals as needed (5) Osteomyelitis Qualifiers: Osteomyelitis type: other acute Osteomyelitis location: foot Laterality: right Qualified Code(s): M86.171 - Other acute osteomyelitis, right ankle and foot Is this a current diagnosis for this admission?: Yes Plan: For BKA (6) Depression Qualifiers: Major depression episode severity: unspecified Is this a current diagnosis for this admission?: Yes Plan: Continue Abilify and Effexor (7) Chronic diastolic CHF (congestive heart failure) Is this a current diagnosis for this admission?: Yes Plan: To order Toprol-XL, lisinopril and Lasix IV (8) Chronic pain syndrome Is this a current diagnosis for this admission?: Yes Plan: So far doing well with current regimen without the need of long-acting morphine - Time Time Spent with patient: 15-24 minutes Medications reviewed and adjusted accordingly: Yes Anticipated discharge: Acute Rehab Within: within 72 hours - Inpatient Certification Based on my medical assessment, after consideration of the patient's comorbidities, presenting symptoms, or acuity I expect that the services needed warrant INPATIENT care.: Yes I certify that my determination is in accordance with my understanding of Medicare's requirements for reasonable and necessary INPATIENT services [42 CFR 412.3e].: Yes Medical Necessity: Need Close Monitoring Due to Risk of Patient Decompensation, Need for Pain Control, Need for IV Antibiotics
[2018-02-09] MEDS ORDERED: PIPERACILLIN SODIUM/TAZOBACTAM 3.375 GM in NORMAL SALINE 100 ML IV ONE (20:30)
[2018-02-09 20:32] LABS: INTERNATIONAL RATION (INR) 1.56; PROTHROMBIN TIME 19.6 SEC (11.4-15.4)
[2018-02-09 20:33] LABS: PARTIAL THROMBOPLASTIN TIME 45.1 SEC (23.5-35.8)
[2018-02-09] MEDS ORDERED: FUROSEMIDE INJ/PF 20 MG/2 ML SDV IV SCH (22:00)
--- NOTE | 2018-02-10 00:50 | PDOC PROGRESS REPORT ---
Subjective Progress Note for:: 02/10/18 Subjective:: Some pains right foot Reason For Visit: ARF,DIABETES,AFIB,DIABETIC FOOT ULCER Physical Exam Vital Signs: Temp Pulse Resp BP Pulse Ox 97.7 F 101 H 16 148/69 H 97 02/09/18 19:13 02/09/18 19:13 02/09/18 19:13 02/09/18 19:13 02/09/18 19:13 Intake & Output 02/08/18 02/09/18 02/10/18 06:59 06:59 06:59 Intake Total 3950 857 Output Total 700 1900 2700 Balance -700 2050 -1843 Weight 132.6 kg Exam: Right foot continues to have foul smelling necrotic tissue on the ulcer site. Inflammation appears going up to ankle area. Will need a BKA. Results Laboratory Results: 02/09/18 05:49 02/09/18 05:49 02/09/18 02/09/18 02/09/18 05:49 05:49 13:05 WBC 14.4 H RBC 4.71 Hgb 10.9 L Hct 33.9 L MCV 72 L MCH 23.1 L MCHC 32.1 RDW 15.8 H Plt Count 222 Sodium 135.2 L Potassium 3.2 L Chloride 94 L Carbon Dioxide 32 H Anion Gap 9 BUN 42 H Creatinine 1.10 Est GFR ( Amer) > 60 Est GFR (Non-Af Amer) > 60 Glucose 218 H Calcium 8.4 Blood Type O POSITIVE 02/09/18 13:05 NT-Pro-B Natriuret Pep 4920 H Impressions: Chest X-Ray 02/07/18 23:17 IMPRESSION: 1. No acute pulmonary process identified. Cardiomegaly. Foot X-Ray 02/07/18 23:17 IMPRESSION: 1. Osseous destruction of the fifth metatarsal and base of the proximal fifth phalanx. These findings suggest osteomyelitis. Correlation with contrast-enhanced MRI could provide additional characterization. Lower Extremity Ultrasound 02/08/18 00:00 IMPRESSION: NORMAL BILATERAL LOWER EXTREMITY ARTERIAL DOPPLER. Assessment & Plan - Diagnosis (1) A-fib Qualifiers: Atrial fibrillation type: chronic Qualified Code(s): I48.2 - Chronic atrial fibrillation Is this a current diagnosis for this admission?: Yes - Time Time Spent with patient: 15-24 minutes - Plan Summary Plan Summary: His INR is still elevated to 2.2 despite Vit K given yesterday. OR Canceled today. D/W Hospitalist. She will correct coagulopathy to have surgery tomorrow. Anesthesia feels Spinal anesthesia is best for the patient but needs to have a lower INR.
[2018-02-10] MEDS: INSULIN DETEMIR 100 UNIT/ML 3 ML PEN SUBCUT SCH ×3 (02:10→22:27)
[2018-02-10] MEDS: PIPERACILLIN SODIUM/TAZOBACTAM 3.375 GM in NORMAL SALINE 100 ML IV SCH ×4 (02:42→22:16)
[2018-02-10 05:01] LABS: HEMATOCRIT 33.9 % (37.9-51.0); HEMOGLOBIN 10.9 g/dL (13.5-17.0); MEAN CORPUSCULAR HEMOGLOBIN 22.8 pg (27.0-33.4); MEAN CORPUSCULAR VOLUME 71 fl (80-97); PLATELET COUNT 290 10^3/uL (150-450); RED BLOOD COUNT 4.75 10^6/uL (4.35-5.55); RED CELL DISTRIBUTION WIDTH 15.5 % (11.5-14.0); WHITE BLOOD COUNT 16.3 10^3/uL (4.0-10.5)
[2018-02-10 05:06] LABS: PROTHROMBIN TIME 18.1 SEC (11.4-15.4)
[2018-02-10 05:07] LABS: PARTIAL THROMBOPLASTIN TIME 49.5 SEC (23.5-35.8)
[2018-02-10 05:26] LABS: ALANINE AMINOTRANSFERASE 18 U/L (21-72); ALKALINE PHOSPHATASE 186 U/L (38-126); ANION GAP 8 (5-19); ASPARTATE AMINO TRANSFERASE 21 U/L (17-59); BILIRUBIN,DIRECT 0.6 mg/dL (0.0-0.4); BILIRUBIN,TOTAL 0.7 mg/dL (0.2-1.3); BLOOD UREA NITROGEN 30 mg/dL (7-20); CALCIUM 8.4 mg/dL (8.4-10.2); CARBON DIOXIDE 34 mmol/L (22-30); CHLORIDE 95 mmol/L (98-107); GLUCOSE 286 mg/dL (75-110); SODIUM 136.8 mmol/L (137-145)
[2018-02-10 05:31] LABS: ABSOLUTE LYMPHOCYTES# (MANUAL) 1.3 10^3/uL (0.5-4.7); ABSOLUTE MONOCYTES # (MANUAL) 0.8 10^3/uL (0.1-1.4); ABSOLUTE NEUTROPHILS# (MANUAL) 14.2 10^3/uL (1.7-8.2); BASOPHILS % (MANUAL) 0 % (0-2); EOSINOPHILS % (MANUAL) 0 % (0-6); LYMPHOCYTES % (MANUAL) 8 % (13-45); MONOCYTES % (MANUAL) 5 % (3-13); SEGMENTED NEUTROPHILS % (MAN) 87 % (42-78); TOTAL CELLS COUNTED 100
[2018-02-10 05:32] LABS: PLATELET COMMENT ADEQUATE
[2018-02-10 05:33] LABS: ANISOCYTOSIS 2+; HYPOCHROMASIA SLIGHT
[2018-02-10 05:34] LABS: POTASSIUM 2.6 mmol/L (3.6-5.0)
[2018-02-10] MEDS ORDERED: POTASSI CL 20 MEQ/50 ML RIDER 20 MEQ/50 ML RTUPB IV ONE (05:59)
[2018-02-10] MEDS: POTASSIUM CHLORIDE 20 MEQ/50 ML RTU IV SCH ×2 (06:21→09:42)
[2018-02-10] MEDS ORDERED: POTASSI CL 20 MEQ/50 ML RIDER 20 MEQ/50 ML RTUPB IV SCH ×2 (07:17→07:40)
[2018-02-10] MEDS ORDERED: FUROSEMIDE INJ/PF 20 MG/2 ML SDV IV ONE (08:00)
[2018-02-10] MEDS: INSULIN LISPRO 100 UNIT/ML 3 ML VIAL SUBCUT PRN ×2 (09:42→22:26)
--- NOTE | 2018-02-10 09:42 | PDOC PROGRESS REPORT ---
Subjective Progress Note for:: 02/10/18 Reason For Visit: ARF,DIABETES,AFIB,DIABETIC FOOT ULCER Room smells foul; patient has no complaints lying in bed. Physical Exam Vital Signs: Temp Pulse Resp BP Pulse Ox 98.0 F 97 20 141/84 H 96 02/10/18 08:11 02/10/18 08:11 02/10/18 08:11 02/10/18 08:11 02/10/18 08:11 Intake & Output 02/09/18 02/10/18 02/11/18 06:59 06:59 06:59 Intake Total 3950 2884 Output Total 1900 2700 Balance 2049 184 Weight 132.6 kg 134.6 kg General appearance: PRESENT: no acute distress Extremities exam: PRESENT: other - Right leg examined. There is chronic edema from the knee down to the foot. I did not remove the foot and ankle dressing; there is marked hyper keratotic and dermato- sclerotic changes to the pretibial region. The knee and leg are warm. Results Laboratory Results: 02/10/18 04:11 02/10/18 04:11 02/09/18 02/10/18 02/10/18 13:05 02:50 04:11 WBC 16.3 H RBC 4.75 Hgb 10.9 L Hct 33.9 L MCV 71 L MCH 22.8 L MCHC 32.0 RDW 15.5 H Plt Count 290 Seg Neutrophils % Not Reportable Lymphocytes % Not Reportable Monocytes % Not Reportable Eosinophils % Not Reportable Basophils % Not Reportable Absolute Neutrophils Not Reportable Absolute Lymphocytes Not Reportable Absolute Monocytes Not Reportable Absolute Eosinophils Not Reportable Absolute Basophils Not Reportable Sodium Potassium Chloride Carbon Dioxide Anion Gap BUN Creatinine Est GFR ( Amer) Est GFR (Non-Af Amer) Glucose Calcium Magnesium Total Bilirubin AST ALT Alkaline Phosphatase Total Protein Albumin Stool Occult Blood NEGATIVE Blood Type O POSITIVE 02/10/18 04:11 WBC RBC Hgb Hct MCV MCH MCHC RDW Plt Count Seg Neutrophils % Lymphocytes % Monocytes % Eosinophils % Basophils % Absolute Neutrophils Absolute Lymphocytes Absolute Monocytes Absolute Eosinophils Absolute Basophils Sodium 136.8 L Potassium 2.6 L* Chloride 95 L Carbon Dioxide 34 H Anion Gap 8 BUN 30 H Creatinine 0.98 Est GFR ( Amer) > 60 Est GFR (Non-Af Amer) > 60 Glucose 286 H Calcium 8.4 Magnesium 2.0 Total Bilirubin 0.7 AST 21 ALT 18 L Alkaline Phosphatase 186 H Total Protein 7.0 Albumin 3.0 L Stool Occult Blood Blood Type 02/09/18 13:05 NT-Pro-B Natriuret Pep 4920 H Impressions: Chest X-Ray 02/07/18 23:17 IMPRESSION: 1. No acute pulmonary process identified. Cardiomegaly. Foot X-Ray 02/07/18 23:17 IMPRESSION: 1. Osseous destruction of the fifth metatarsal and base of the proximal fifth phalanx. These findings suggest osteomyelitis. Correlation with contrast-enhanced MRI could provide additional characterization. Lower Extremity Ultrasound 02/08/18 00:00 IMPRESSION: NORMAL BILATERAL LOWER EXTREMITY ARTERIAL DOPPLER. Assessment & Plan - Diagnosis (1) Diabetic foot ulcer Qualifiers: Diabetic foot ulcer location: midfoot Diabetes mellitus type: type 2 Laterality: right Non-pressure ulcer stage: with necrosis of bone Qualified Code(s): E11.621 - Type 2 diabetes mellitus with foot ulcer; L97.414 - Non- pressure chronic ulcer of right heel and midfoot with necrosis of bone; L97.414 - Non-pressure chronic ulcer of right heel and midfoot with necrosis of bone; L97.414 - Non-pressure chronic ulcer of right heel and midfoot with necrosis of bone; L97.414 - Non-pressure chronic ulcer of right heel and midfoot with necrosis of bone Is this a current diagnosis for this admission?: Yes Plan: Persisting septic right foot due to deep soft tissue, tendon and possibly bone infection; needs BKA. Commendations and plan 1. His potassium of 2.6 is being corrected this morning. 2. Patient's coags are PT of 18.1 and INR 1.4. Spoke with the anesthesiologist Dr. Steven Sinclair and we will proceed with surgery today general anesthesia. 3. I explained to the patient that he will this may require a staged procedure due to degree of edema the leg, and infection in the foot and ankle. At the same setting we will place a central venous access catheter. Of note the patient has some cognitive dysfunction but I believe he understands the proposed procedure well enough to provide informed consent.
[2018-02-10] MEDS ORDERED: LORAZEPAM INJ 2 MG/1 ML VIAL IV PRN (09:51)
[2018-02-10] MEDS ORDERED: VENLAFAXINE HCL 37.5 MG CAP.SR.24H PO SCH (09:54)
[2018-02-10] MEDS ORDERED: CLONAZEPAM 1 MG TABLET PO SCH (10:00)
[2018-02-10] MEDS ORDERED: AMLODIPINE BESYLATE 5 MG TABLET PO SCH (10:00)
[2018-02-10] MEDS: INSULIN LISPRO 100 UNIT/ML 3 ML VIAL SUBCUT SCH ×3 (10:17→15:54)
[2018-02-10] MEDS ORDERED: POTASSIUM CHLORIDE 20 MEQ/50 ML RTU IV ONE (10:30)
[2018-02-10] MEDS: VANCOMYCIN HCL 1,500 MG in DEXTROSE 5%-WATER 250 ML IV SCH ×2 (11:45→22:22)
[2018-02-10] MEDS: METOPROLOL SUCCINATE 50 MG TAB.SR.24H PO SCH (12:07)
[2018-02-10] MEDS: MULTIVITAMIN TABLET PO SCH (12:07)
[2018-02-10] MEDS: ARIPIPRAZOLE 5 MG TABLET PO SCH (12:07)
[2018-02-10] MEDS: VENLAFAXINE HCL 75 MG CAP.SR.24H PO SCH (12:07)
[2018-02-10] MEDS: LISINOPRIL 10 MG TABLET PO SCH (12:07)
[2018-02-10] MEDS: DIGOXIN 0.25 MG TABLET PO SCH (12:07)
[2018-02-10] MEDS: ASCORBIC ACID 500 MG TABLET PO SCH ×2 (12:07→17:42)
[2018-02-10] MEDS: DOCUSATE SODIUM 100 MG CAPSULE PO SCH ×2 (12:07→17:42)
[2018-02-10] MEDS: POLYETHYLENE GLYCOL 3350 POWDER 17 GM/1 PACKET PO SCH (12:07)
[2018-02-10] MEDS ORDERED: SUCCINYLCHOLINE CHLORIDE INJ 200 MG/10 ML VIAL ONE (12:39)
[2018-02-10] MEDS ORDERED: LIDOCAINE 2% INJ-PF (20 MG/ML) 2 ML AMPUL ONE (12:39)
[2018-02-10] MEDS ORDERED: FENTANYL CITRATE INJ/PF 100 MCG/2 ML AMPUL ONE ×2 (16:08)
[2018-02-10] MEDS ORDERED: PROPOFOL INJ 200 MG/20 ML VIAL IV ONE ×2 (16:09→18:40)
[2018-02-10] MEDS ORDERED: MIDAZOLAM 2 MG/2 ML INJ ONE (16:09)
[2018-02-10] MEDS ORDERED: ACETAMINOPHEN 0 ML IV ONE (16:09)
[2018-02-10] MEDS ORDERED: LIDOCAINE 1% INJ-PF (10 MG/ML) 30 ML SDV ONE (16:12)
[2018-02-10] MEDS ORDERED: KETAMINE HCL INJ 500 MG/10 ML VIAL ONE (16:19)
[2018-02-10] MEDS ORDERED: EPHEDRINE SULFATE INJ 50 MG/1 ML AMPULE ONE (16:31)
[2018-02-10] MEDS ORDERED: FENTANYL CITRATE INJ/PF 100 MCG/2 ML AMPUL IV PRN ×3 (17:26)
[2018-02-10] MEDS ORDERED: DIPHENHYDRAMINE HCL 50 MG/ML VIAL IV PRN (17:26)
[2018-02-10] MEDS ORDERED: OXYCODONE-ACETAMINOPHEN 5-325 MG TABLET PO PRN ×2 (17:26)
[2018-02-10] MEDS ORDERED: PROMETHAZINE HCL INJ 25 MG/1 ML VIAL IV PRN ×2 (17:26)
--- NOTE | 2018-02-10 18:27 | PDOC PROGRESS REPORT ---
Subjective Progress Note for:: 02/10/18 Subjective:: Patient admited being very anxious because of the surgery. Review of systems All organ systems evaluated and negative except as in subjective All significant diagnostics and laboratories had been reviewed Reason For Visit: ARF,DIABETES,AFIB,DIABETIC FOOT ULCER Physical Exam Vital Signs: Temp Pulse Resp BP Pulse Ox 97.9 F 80 20 151/84 H 97 02/10/18 12:24 02/10/18 14:00 02/10/18 12:24 02/10/18 12:24 02/10/18 12:24 Intake & Output 02/09/18 02/10/18 02/11/18 06:59 06:59 06:59 Intake Total 3950 2884 2650 Output Total 1900 2700 1920 Balance 2050 184 730 Weight 132.6 kg 134.6 kg General appearance: PRESENT: cooperative, mild distress, morbidly obese Head exam: PRESENT: atraumatic, normocephalic Eye exam: PRESENT: conjunctiva pink, EOMI, PERRLA Ear exam: PRESENT: TM's normal bilaterally Neck exam: PRESENT: full ROM. ABSENT: JVD, lymphadenopathy, tenderness Respiratory exam: PRESENT: clear to auscultation terra Cardiovascular exam: PRESENT: irregular rhythm. ABSENT: diastolic murmur, systolic murmur GI/Abdominal exam: PRESENT: normal bowel sounds, soft. ABSENT: tenderness Extremities exam: PRESENT: full ROM, +2 edema Musculoskeletal exam: ABSENT: ambulatory Neurological exam: PRESENT: alert, awake, oriented to person, oriented to place , oriented to time, oriented to situation, CN II-XII grossly intact Psychiatric exam: PRESENT: anxious Skin exam: PRESENT: normal color, other - right foot unchanged Results Laboratory Results: 02/10/18 04:11 02/10/18 15:10 02/09/18 02/10/18 02/10/18 13:05 02:50 04:11 WBC 16.3 H RBC 4.75 Hgb 10.9 L Hct 33.9 L MCV 71 L MCH 22.8 L MCHC 32.0 RDW 15.5 H Plt Count 290 Seg Neutrophils % Not Reportable Lymphocytes % Not Reportable Monocytes % Not Reportable Eosinophils % Not Reportable Basophils % Not Reportable Absolute Neutrophils Not Reportable Absolute Lymphocytes Not Reportable Absolute Monocytes Not Reportable Absolute Eosinophils Not Reportable Absolute Basophils Not Reportable Sodium Potassium Chloride Carbon Dioxide Anion Gap BUN Creatinine Est GFR ( Amer) Est GFR (Non-Af Amer) Glucose Calcium Magnesium Total Bilirubin AST ALT Alkaline Phosphatase Total Protein Albumin Stool Occult Blood NEGATIVE Blood Type O POSITIVE Antibody Screen NEGATIVE 02/10/18 02/10/18 02/10/18 04:11 09:59 15:10 WBC RBC Hgb Hct MCV MCH MCHC RDW Plt Count Seg Neutrophils % Lymphocytes % Monocytes % Eosinophils % Basophils % Absolute Neutrophils Absolute Lymphocytes Absolute Monocytes Absolute Eosinophils Absolute Basophils Sodium 136.8 L Potassium 2.6 L* 2.9 L* Chloride 95 L Carbon Dioxide 34 H Anion Gap 8 BUN 30 H Creatinine 0.98 0.77 Est GFR ( Amer) > 60 > 60 Est GFR (Non-Af Amer) > 60 > 60 Glucose 286 H Calcium 8.4 Magnesium 2.0 Total Bilirubin 0.7 AST 21 ALT 18 L Alkaline Phosphatase 186 H Total Protein 7.0 Albumin 3.0 L Stool Occult Blood Blood Type Antibody Screen 02/09/18 13:05 NT-Pro-B Natriuret Pep 4920 H Impressions: Chest X-Ray 02/07/18 23:17 IMPRESSION: 1. No acute pulmonary process identified. Cardiomegaly. Foot X-Ray 02/07/18 23:17 IMPRESSION: 1. Osseous destruction of the fifth metatarsal and base of the proximal fifth phalanx. These findings suggest osteomyelitis. Correlation with contrast-enhanced MRI could provide additional characterization. Lower Extremity Ultrasound 02/08/18 00:00 IMPRESSION: NORMAL BILATERAL LOWER EXTREMITY ARTERIAL DOPPLER. Assessment & Plan - Diagnosis (1) A-fib Qualifiers: Atrial fibrillation type: chronic Qualified Code(s): I48.2 - Chronic atrial fibrillation Is this a current diagnosis for this admission?: Yes Plan: Stable. Continue present management. Anticipate to place on Eliquis after surgery (2) Acute kidney injury (nontraumatic) Is this a current diagnosis for this admission?: Yes Plan: Improved (3) Diabetic foot ulcer Qualifiers: Diabetic foot ulcer location: midfoot Diabetes mellitus type: type 2 Laterality: right Non-pressure ulcer stage: with necrosis of bone Qualified Code(s): E11.621 - Type 2 diabetes mellitus with foot ulcer; L97.414 - Non- pressure chronic ulcer of right heel and midfoot with necrosis of bone; L97.414 - Non-pressure chronic ulcer of right heel and midfoot with necrosis of bone; L97.414 - Non-pressure chronic ulcer of right heel and midfoot with necrosis of bone; L97.414 - Non-pressure chronic ulcer of right heel and midfoot with necrosis of bone Is this a current diagnosis for this admission?: Yes Plan: Continue vancomycin and Zosyn. Continue multivitamins and vitamin C. For BKA today (4) Hyperglycemia Is this a current diagnosis for this admission?: Yes Plan: Continue current management (5) Osteomyelitis Qualifiers: Osteomyelitis type: other acute Osteomyelitis location: foot Laterality: right Qualified Code(s): M86.171 - Other acute osteomyelitis, right ankle and foot Is this a current diagnosis for this admission?: Yes Plan: For BKA (6) Depression Qualifiers: Major depression episode severity: unspecified Is this a current diagnosis for this admission?: Yes Plan: Continue Abilify. Increase Effexor and Klonopin. To order Ativan as needed IV (7) Chronic diastolic CHF (congestive heart failure) Is this a current diagnosis for this admission?: Yes Plan: Decrease Lasix IV. Continue otherwise same management (8) Chronic pain syndrome Is this a current diagnosis for this admission?: Yes Plan: Will follow-up after getting surgery as may need adjustment of pain management regimen (9) Sepsis Is this a current diagnosis for this admission?: Yes Plan: Due to Staphylococcus hominis. Continue vancomycin IV (10) Hypokalemia Is this a current diagnosis for this admission?: Yes Plan: Replace IV and p.o. To trend - Time Time Spent with patient: 15-24 minutes Medications reviewed and adjusted accordingly: Yes Anticipated discharge: Acute Rehab Within: within 72 hours - Inpatient Certification Based on my medical assessment, after consideration of the patient's comorbidities, presenting symptoms, or acuity I expect that the services needed warrant INPATIENT care.: Yes I certify that my determination is in accordance with my understanding of Medicare's requirements for reasonable and necessary INPATIENT services [42 CFR 412.3e].: Yes Medical Necessity: Need Close Monitoring Due to Risk of Patient Decompensation, Need for IV Antibiotics
[2018-02-10] MEDS ORDERED: KETOROLAC TROMETHAMINE 10 MG TABLET PO PRN (19:10)
[2018-02-10] MEDS ORDERED: ONDANSETRON HCL INJ/PF 4 MG/2 ML SDV IV PRN (19:10)
[2018-02-10] MEDS ORDERED: KETOROLAC TROMETHAMINE INJ/PF 30 MG/1 ML SDV IV PRN (19:10)
--- NOTE | 2018-02-10 19:19 | Operative Report ---
Operative Report DATE OF SURGERY: 02/10/18 PREOPERATIVE DIAGNOSIS: Septic right diabetic foot secondary to large necrotic ulcer with exposed tendons POSTOPERATIVE DIAGNOSIS: Same with lymphedema right lower extremity and venous hypertension OPERATION: 1. 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 2. Extremely difficult modifier. 3. Placement of central line SURGEON: MELLISSA GREEN ANESTHESIA: GA TISSUE REMOVED OR ALTERED: Right foot COMPLICATIONS: None ESTIMATED BLOOD LOSS: 700 cc INTRAOPERATIVE FINDINGS: See below PROCEDURE: The patient was seen in the preoperative holding area, then taken to the main operating room where general anesthesia was induced. As the right leg was being isolated and prepared for preparation, the left subclavian area was exposed. Timeout was conducted. Under sterile technique, a left subclavian central venous access catheter was inserted by Dr. Green using standard Seldinger technique. The left subclavian vein was accessed on first stick, catheter threaded into the position approximately 20 cm from tip to hub and secured to the skin with 2-0 silk suture Biopatch and sterile dressing applied. The catheter was used throughout the duration of the operation. The right leg was elevated, right foot wrapped with 4 x 4's, operative towel, and Coban and. The right leg was prepped from the mid thigh down to the Covan. Coban was then covered with a sterile isolation bag and wrapped with sterile Coban. The right leg was then prepped and draped in sterile fashion and instrumentation set up for open right below the knee amputation. Of note the patient's right lower extremity was enlarged due to the patient's large body habitus as well as noteworthy for chronic lymphedema and venous hypertension. The tissue was edematous. Because of these co-morbidities in the right lower extremity, and the large size of the leg, the operation required an extreme amount of effort and time approximately 2 hours therefore the extremely difficult modifier is applied. Markings were made on the leg for standard right below the knee amputation. We anticipated the bony transection to be at approximately mid lower leg. The skin was incised with a #10 blade in a progressive, circumferential fashion, the skin and subcutaneous tissue was divided. The saphenous vein was diminutive and it was divided tied off with 2-0 Vicryl sutures. Fascia and muscle were divided as encountered. Deeper vessels were cauterized or ligated as encountered. The periosteum of the tibia was elevated with a periosteal elevator i and the tibia divided with the oscillating saw. The anterior tibial vessels were taken as a unit between clamps and 0 Vicryl ties. Further muscle was divided including the deep posterior group as well as the lateral compartment musculature. The periosteum was elevated off of the tibia and the tibia divided with the oscillating saw. The posterior tibial complex was encountered and ligated as well with 0 Vicryl ties. The remainder of the posterior compartments were divided and the last points of attachment to the posterior calf were divided as well. The right foot was passed off to pathology for permanent analysis. There was a moderate to severe amount of edema, chronic. There is no evidence of infection. The skin and musculature bled briskly. The deep or osseous membrane veins were oversewed with 0 2-0 Vicryl suture. We did fibula up a little bit higher to match the transection point of the tibia. We irrigated the stump carefully and check for bleeders. Several small spots were cauterized oversewed with 2-0 Vicryl as encountered. We now performed a complex, multilayered myodesis with 0 and 2-0 Vicryl suture. The skin was now approximated with 3-0 Ethilon suture and den. Bleeding was minimal. Wound dressed with Xeroform Kerlix and Pratik wraps. Patient tolerated procedure well, extubated and, taken recovery room stable condition.
--- NOTE | 2018-02-10 19:28 | RADIOLOGY REPORT (SQ) ---
EXAM DESCRIPTION: CHEST SINGLE VIEW COMPLETED DATE/TIME: 02/10/2018 7:20 pm REASON FOR STUDY: post cvp COMPARISON: 02/08/2018 EXAM PARAMETERS: NUMBER OF VIEWS: One view. TECHNIQUE: Single frontal radiographic view of the chest acquired. RADIATION DOSE: NA LIMITATIONS: None. FINDINGS: LUNGS AND PLEURA: No acute opacities, masses or pneumothorax. No pleural effusion. MEDIASTINUM AND HILAR STRUCTURES: Stable. HEART AND VASCULAR STRUCTURES: Stable. BONES: No acute findings. HARDWARE: New left subclavian central venous catheter tip overlies the SVC above the level of the rig ht atrium. OTHER: No other significant finding. IMPRESSION: New left subclavian central venous catheter tip overlies the SVC above the level of the right atrium. No acute findings otherwise. TECHNICAL DOCUMENTATION: JOB ID: [id number] [place]-[address]- All Rights Reserved Reading location - IP/workstation name: [email or web address]
[2018-02-10] MEDS ORDERED: NORMAL SALINE 1000 ML 1,000 ML IV PRN (20:22)
[2018-02-10] MEDS: POTASSIUM CHLORIDE 10 MEQ TABLET.SA PO SCH (22:24)
[2018-02-10] MEDS: CLONAZEPAM 1 MG TABLET PO SCH (22:25)
[2018-02-10] MEDS: OXYCODONE-ACETAMINOPHEN 5-325 MG TABLET PO PRN (22:44)
[2018-02-10 22:52] LABS: VANCOMYCIN,TROUGH 18.7 ug/mL (5.0-20.0)
[2018-02-10] MEDS ORDERED: MORPHINE SULFATE INJ PF 2 MG/2 ML AMPULE IV PRN (23:42)
[2018-02-10] MEDS ORDERED: MORPHINE SULFATE 10 MG/ML INJ ONE (23:55)
[2018-02-11 01:00] LABS: AMORPHOUS SEDIMENT,URINE TRACE /HPF; APPEARANCE,URINE CLOUDY; BILIRUBIN,URINE NEGATIVE (NEGATIVE); COLOR,URINE YELLOW; GLUCOSE, URINE >=500 mg/dL (NEGATIVE); KETONES,URINE NEGATIVE (NEGATIVE); LEUKOCYTE ESTERASE,URINE LARGE (NEGATIVE); NITRITE,URINE NEGATIVE (NEGATIVE); PROTEIN,URINE 30 mg/dL (NEGATIVE); URINE SPECIFIC GRAVITY 1.017; UROBILINOGEN,URINE NEGATIVE mg/dL (<2.0)
[2018-02-11] MEDS: MORPHINE SULFATE 10 MG/ML INJ IV PRN ×4 (02:47→20:04)
[2018-02-11] MEDS: PIPERACILLIN SODIUM/TAZOBACTAM 3.375 GM in NORMAL SALINE 100 ML IV SCH ×4 (02:49→20:08)
[2018-02-11] MEDS: FUROSEMIDE INJ/PF 20 MG/2 ML SDV IV SCH ×3 (02:56→21:30)
[2018-02-11] MEDS: POTASSIUM CHLORIDE 10 MEQ TABLET.SA PO SCH ×4 (05:35→23:55)
[2018-02-11] MEDS: OXYCODONE-ACETAMINOPHEN 5-325 MG TABLET PO PRN ×2 (05:37→17:59)
[2018-02-11 06:20] LABS: ABSOLUTE MONOCYTES (AUTO) 1.3 10^3/uL (0.1-1.4); ABSOLUTE NEUT (AUTO) 8.9 10^3/uL (1.7-8.2); BASOPHILS % (AUTO) 0.2 % (0-2); EOSINOPHILS % (AUTO) 0.3 % (0-6); HEMATOCRIT 29.9 % (37.9-51.0); HEMOGLOBIN 9.4 g/dL (13.5-17.0); LYMPHOCYTES % (AUTO) 16.2 % (13-45); MEAN CORPUSCULAR HEMOGLOBIN 22.7 pg (27.0-33.4); MEAN CORPUSCULAR HGB CONC 31.5 g/dL (32.0-36.0); MEAN CORPUSCULAR VOLUME 72 fl (80-97); MONOCYTES % (AUTO) 10.5 % (3-13); PLATELET COUNT 291 10^3/uL (150-450); RED BLOOD COUNT 4.16 10^6/uL (4.35-5.55); RED CELL DISTRIBUTION WIDTH 15.7 % (11.5-14.0); SEGMENTED NEUTROPHILS % (AUTO) 72.8 % (42-78); TOTAL CELLS COUNTED % (AUTO) 100 %; WHITE BLOOD COUNT 12.2 10^3/uL (4.0-10.5)
[2018-02-11 06:37] LABS: ANION GAP 5 (5-19); BLOOD UREA NITROGEN 29 mg/dL (7-20); CALCIUM 8.1 mg/dL (8.4-10.2); CARBON DIOXIDE 35 mmol/L (22-30); CHLORIDE 97 mmol/L (98-107); GLUCOSE 214 mg/dL (75-110); POTASSIUM 3.1 mmol/L (3.6-5.0); SODIUM 137.1 mmol/L (137-145)
[2018-02-11] MEDS ORDERED: AMLODIPINE BESYLATE 5 MG TABLET PO SCH (08:20)
[2018-02-11] MEDS: INSULIN LISPRO 100 UNIT/ML 3 ML VIAL SUBCUT PRN ×2 (08:48→12:43)
[2018-02-11] MEDS: INSULIN LISPRO 100 UNIT/ML 3 ML VIAL SUBCUT SCH ×3 (08:48→16:37)
[2018-02-11] MEDS ORDERED: MORPHINE SULFATE SR 30 MG TABLET PO ONE (09:00)
[2018-02-11] MEDS: POLYETHYLENE GLYCOL 3350 POWDER 17 GM/1 PACKET PO SCH (09:55)
[2018-02-11] MEDS: DOCUSATE SODIUM 100 MG CAPSULE PO SCH ×4 (09:55→17:49)
[2018-02-11] MEDS: LISINOPRIL 10 MG TABLET PO SCH (10:43)
[2018-02-11] MEDS: AMLODIPINE BESYLATE 10 MG TABLET PO SCH (10:43)
[2018-02-11] MEDS: METOPROLOL SUCCINATE 50 MG TAB.SR.24H PO SCH (10:43)
[2018-02-11] MEDS: DIGOXIN 0.25 MG TABLET PO SCH (10:43)
[2018-02-11] MEDS: CLONAZEPAM 1 MG TABLET PO SCH ×2 (10:43→21:29)
[2018-02-11] MEDS: ARIPIPRAZOLE 5 MG TABLET PO SCH (10:43)
[2018-02-11] MEDS: APIXABAN 5 MG TABLET PO SCH ×2 (10:44→17:59)
[2018-02-11] MEDS: VANCOMYCIN HCL 1,500 MG in DEXTROSE 5%-WATER 250 ML IV SCH ×2 (10:44→21:31)
[2018-02-11] MEDS: ASCORBIC ACID 500 MG TABLET PO SCH ×2 (10:46→17:59)
[2018-02-11] MEDS: MULTIVITAMIN TABLET PO SCH (10:48)
[2018-02-11] MEDS: INSULIN DETEMIR 100 UNIT/ML 3 ML PEN SUBCUT SCH ×2 (10:50→21:37)
[2018-02-11] MEDS: VENLAFAXINE HCL 75 MG CAP.SR.24H PO SCH (10:50)
--- NOTE | 2018-02-11 13:00 | PDOC PROGRESS REPORT ---
Subjective Progress Note for:: 02/11/18 Subjective:: Patient admited being very anxious because of the surgery. Review of systems All organ systems evaluated and negative except as in subjective All significant diagnostics and laboratories had been reviewed Reason For Visit: ARF,DIABETES,AFIB,DIABETIC FOOT ULCER Physical Exam Vital Signs: Temp Pulse Resp BP Pulse Ox 98.5 F 91 16 135/82 H 99 02/11/18 07:53 02/11/18 07:53 02/11/18 07:53 02/11/18 07:53 02/11/18 07:53 Intake & Output 02/10/18 02/11/18 02/12/18 06:59 06:59 06:59 Intake Total 2884 7550 Output Total 2700 3870 Balance 184 3680 Weight 134.6 kg 132.9 kg General appearance: PRESENT: cooperative, obese Head exam: PRESENT: atraumatic, normocephalic Eye exam: PRESENT: conjunctiva pink, EOMI, PERRLA Mouth exam: PRESENT: moist Neck exam: PRESENT: full ROM. ABSENT: JVD, lymphadenopathy, tenderness Respiratory exam: PRESENT: clear to auscultation terra Cardiovascular exam: PRESENT: irregular rhythm. ABSENT: diastolic murmur, systolic murmur Vascular exam: PRESENT: normal capillary refill GI/Abdominal exam: PRESENT: normal bowel sounds, soft. ABSENT: tenderness Extremities exam: PRESENT: +1 edema Musculoskeletal exam: PRESENT: other - Right BKA present. ABSENT: ambulatory Neurological exam: PRESENT: alert, awake, oriented to person, oriented to place , oriented to time, oriented to situation, CN II-XII grossly intact Psychiatric exam: PRESENT: appropriate affect, normal mood Skin exam: PRESENT: normal color Results Laboratory Results: 02/11/18 05:15 02/11/18 05:15 02/09/18 02/10/18 02/10/18 13:05 09:59 15:10 WBC RBC Hgb Hct MCV MCH MCHC RDW Plt Count Seg Neutrophils % Lymphocytes % Monocytes % Eosinophils % Basophils % Absolute Neutrophils Absolute Lymphocytes Absolute Monocytes Absolute Eosinophils Absolute Basophils Sodium Potassium 2.9 L* Chloride Carbon Dioxide Anion Gap BUN Creatinine 0.77 Est GFR ( Amer) > 60 Est GFR (Non-Af Amer) > 60 Glucose Calcium Magnesium Urine Color Urine Appearance Urine pH Ur Specific [place] Urine Protein Urine Glucose (UA) Urine Ketones Urine Blood Urine Nitrite Ur Leukocyte Esterase Urine WBC (Auto) Urine RBC (Auto) Stool Occult Blood Blood Type O POSITIVE Antibody Screen NEGATIVE 02/10/18 02/10/18 02/10/18 21:45 23:45 23:45 WBC RBC Hgb Hct MCV MCH MCHC RDW Plt Count Seg Neutrophils % Lymphocytes % Monocytes % Eosinophils % Basophils % Absolute Neutrophils Absolute Lymphocytes Absolute Monocytes Absolute Eosinophils Absolute Basophils Sodium Potassium 3.1 L Chloride Carbon Dioxide Anion Gap BUN Creatinine Est GFR ( Amer) Est GFR (Non-Af Amer) Glucose Calcium Magnesium Urine Color YELLOW Urine Appearance CLOUDY Urine pH 5.0 Ur Specific [place] 1.017 Urine Protein 30 H Urine Glucose (UA) >=500 H Urine Ketones NEGATIVE Urine Blood MODERATE H Urine Nitrite NEGATIVE Ur Leukocyte Esterase LARGE H Urine WBC (Auto) >182 Urine RBC (Auto) 6 Stool Occult Blood NEGATIVE Blood Type Antibody Screen 02/11/18 02/11/18 05:15 05:15 WBC 12.2 H RBC 4.16 L Hgb 9.4 L Hct 29.9 L MCV 72 L MCH 22.7 L MCHC 31.5 L RDW 15.7 H Plt Count 291 Seg Neutrophils % 72.8 Lymphocytes % 16.2 Monocytes % 10.5 Eosinophils % 0.3 Basophils % 0.2 Absolute Neutrophils 8.9 H Absolute Lymphocytes 2.0 Absolute Monocytes 1.3 Absolute Eosinophils 0.0 Absolute Basophils 0.0 Sodium 137.1 Potassium 3.1 L Chloride 97 L Carbon Dioxide 35 H Anion Gap 5 BUN 29 H Creatinine 1.01 Est GFR ( Amer) > 60 Est GFR (Non-Af Amer) > 60 Glucose 214 H Calcium 8.1 L Magnesium 2.1 Urine Color Urine Appearance Urine pH Ur Specific [place] Urine Protein Urine Glucose (UA) Urine Ketones Urine Blood Urine Nitrite Ur Leukocyte Esterase Urine WBC (Auto) Urine RBC (Auto) Stool Occult Blood Blood Type Antibody Screen 02/09/18 13:05 NT-Pro-B Natriuret Pep 4920 H Impressions: Foot X-Ray 02/07/18 23:17 IMPRESSION: 1. Osseous destruction of the fifth metatarsal and base of the proximal fifth phalanx. These findings suggest osteomyelitis. Correlation with contrast-enhanced MRI could provide additional characterization. Lower Extremity Ultrasound 02/08/18 00:00 IMPRESSION: NORMAL BILATERAL LOWER EXTREMITY ARTERIAL DOPPLER. Chest X-Ray 02/10/18 00:00 IMPRESSION: New left subclavian central venous catheter tip overlies the SVC above the level of the right atrium. No acute findings otherwise. Assessment & Plan - Diagnosis (1) A-fib Qualifiers: Atrial fibrillation type: chronic Qualified Code(s): I48.2 - Chronic atrial fibrillation Is this a current diagnosis for this admission?: Yes Plan: Stable. Continue present management. Start eliquis (2) Acute kidney injury (nontraumatic) Is this a current diagnosis for this admission?: Yes Plan: Resolved (3) Diabetic foot ulcer Qualifiers: Diabetic foot ulcer location: midfoot Diabetes mellitus type: type 2 Laterality: right Non-pressure ulcer stage: with necrosis of bone Qualified Code(s): E11.621 - Type 2 diabetes mellitus with foot ulcer; L97.414 - Non- pressure chronic ulcer of right heel and midfoot with necrosis of bone; L97.414 - Non-pressure chronic ulcer of right heel and midfoot with necrosis of bone; L97.414 - Non-pressure chronic ulcer of right heel and midfoot with necrosis of bone; L97.414 - Non-pressure chronic ulcer of right heel and midfoot with necrosis of bone Is this a current diagnosis for this admission?: Yes Plan: Continue vancomycin and Zosyn. Continue multivitamins and vitamin C. BKA 02/10 and tolerated procedure well (4) Hyperglycemia Is this a current diagnosis for this admission?: Yes Plan: Continue current management . Hopefully blood sugars to improve after surgery. (5) Osteomyelitis Qualifiers: Osteomyelitis type: other acute Osteomyelitis location: foot Laterality: right Qualified Code(s): M86.171 - Other acute osteomyelitis, right ankle and foot Is this a current diagnosis for this admission?: Yes Plan: Source removed (6) Depression Qualifiers: Major depression episode severity: unspecified Is this a current diagnosis for this admission?: Yes Plan: Continue present treatment (7) Chronic diastolic CHF (congestive heart failure) Is this a current diagnosis for this admission?: Yes Plan: Continue current management. Anticipate to transition to oral lasix in AM (8) Chronic pain syndrome Is this a current diagnosis for this admission?: Yes Plan: Having acute component. To start MS Contin and continue percocet for breakthrough (9) Sepsis Is this a current diagnosis for this admission?: Yes Plan: Due to Staphylococcus hominis. Continue vancomycin IV. Patient informed will require 14 day course vancomycin. To consult CM for LTAC evaluation (10) Hypokalemia Is this a current diagnosis for this admission?: Yes Plan: Increase oral potassium dose. Trend - Time Time Spent with patient: 15-24 minutes Medications reviewed and adjusted accordingly: Yes Anticipated discharge: Other - to consult for LTAC Within: when bed available - Inpatient Certification Based on my medical assessment, after consideration of the patient's comorbidities, presenting symptoms, or acuity I expect that the services needed warrant INPATIENT care.: Yes I certify that my determination is in accordance with my understanding of Medicare's requirements for reasonable and necessary INPATIENT services [42 CFR 412.3e].: Yes Medical Necessity: Need Close Monitoring Due to Risk of Patient Decompensation, Need For Continuous Telemetry Monitoring, Need for Pain Control, Need for IV Antibiotics
--- NOTE | 2018-02-11 19:13 | PDOC PROGRESS REPORT ---
Subjective Progress Note for:: 02/11/18 Subjective:: Pains right BKA stump Reason For Visit: ARF,DIABETES,AFIB,DIABETIC FOOT ULCER Physical Exam Vital Signs: Temp Pulse Resp BP Pulse Ox 98.5 F 84 20 123/58 L 95 02/11/18 15:13 02/11/18 15:13 02/11/18 15:13 02/11/18 15:13 02/11/18 15:13 Intake & Output 02/10/18 02/11/18 02/12/18 06:59 06:59 06:59 Intake Total 2884 7550 680 Output Total 2700 3870 850 Balance 184 3680 -170 Weight 134.6 kg 132.9 kg Exam: BKA stump dressings are dry.Keep dressings on x 2-3 days Results Laboratory Results: 02/11/18 05:15 02/11/18 05:15 02/10/18 02/10/18 02/10/18 21:45 23:45 23:45 WBC RBC Hgb Hct MCV MCH MCHC RDW Plt Count Seg Neutrophils % Lymphocytes % Monocytes % Eosinophils % Basophils % Absolute Neutrophils Absolute Lymphocytes Absolute Monocytes Absolute Eosinophils Absolute Basophils Sodium Potassium 3.1 L Chloride Carbon Dioxide Anion Gap BUN Creatinine Est GFR ( Amer) Est GFR (Non-Af Amer) Glucose Calcium Magnesium Urine Color YELLOW Urine Appearance CLOUDY Urine pH 5.0 Ur Specific [place] 1.017 Urine Protein 30 H Urine Glucose (UA) >=500 H Urine Ketones NEGATIVE Urine Blood MODERATE H Urine Nitrite NEGATIVE Ur Leukocyte Esterase LARGE H Urine WBC (Auto) >182 Urine RBC (Auto) 6 Stool Occult Blood NEGATIVE 02/11/18 02/11/18 05:15 05:15 WBC 12.2 H RBC 4.16 L Hgb 9.4 L Hct 29.9 L MCV 72 L MCH 22.7 L MCHC 31.5 L RDW 15.7 H Plt Count 291 Seg Neutrophils % 72.8 Lymphocytes % 16.2 Monocytes % 10.5 Eosinophils % 0.3 Basophils % 0.2 Absolute Neutrophils 8.9 H Absolute Lymphocytes 2.0 Absolute Monocytes 1.3 Absolute Eosinophils 0.0 Absolute Basophils 0.0 Sodium 137.1 Potassium 3.1 L Chloride 97 L Carbon Dioxide 35 H Anion Gap 5 BUN 29 H Creatinine 1.01 Est GFR ( Amer) > 60 Est GFR (Non-Af Amer) > 60 Glucose 214 H Calcium 8.1 L Magnesium 2.1 Urine Color Urine Appearance Urine pH Ur Specific [place] Urine Protein Urine Glucose (UA) Urine Ketones Urine Blood Urine Nitrite Ur Leukocyte Esterase Urine WBC (Auto) Urine RBC (Auto) Stool Occult Blood 02/09/18 13:05 NT-Pro-B Natriuret Pep 4920 H Impressions: Foot X-Ray 02/07/18 23:17 IMPRESSION: 1. Osseous destruction of the fifth metatarsal and base of the proximal fifth phalanx. These findings suggest osteomyelitis. Correlation with contrast-enhanced MRI could provide additional characterization. Lower Extremity Ultrasound 02/08/18 00:00 IMPRESSION: NORMAL BILATERAL LOWER EXTREMITY ARTERIAL DOPPLER. Chest X-Ray 02/10/18 00:00 IMPRESSION: New left subclavian central venous catheter tip overlies the SVC above the level of the right atrium. No acute findings otherwise. Assessment & Plan - Diagnosis (1) A-fib Qualifiers: Atrial fibrillation type: chronic Qualified Code(s): I48.2 - Chronic atrial fibrillation Is this a current diagnosis for this admission?: Yes - Time Time Spent with patient: 15-24 minutes - Plan Summary Plan Summary: Continue IV antibiotics. Keep BKA stump elevated Keep dressings on 24-48 hrs. Lovenox
[2018-02-11] MEDS: GABAPENTIN 300 MG CAPSULE PO SCH (21:30)
[2018-02-11] MEDS: MORPHINE SULFATE SR 30 MG TABLET PO SCH (21:30)
[2018-02-12 00:34] LABS: APPEARANCE,URINE CLEAR; BILIRUBIN,URINE NEGATIVE (NEGATIVE); COLOR,URINE YELLOW; GLUCOSE, URINE NEGATIVE (NEGATIVE); KETONES,URINE NEGATIVE (NEGATIVE); LEUKOCYTE ESTERASE,URINE TRACE (NEGATIVE); NITRITE,URINE NEGATIVE (NEGATIVE); PROTEIN,URINE NEGATIVE (NEGATIVE); URINE SPECIFIC GRAVITY 1.016; UROBILINOGEN,URINE NEGATIVE mg/dL (<2.0)
[2018-02-12] MEDS: PIPERACILLIN SODIUM/TAZOBACTAM 3.375 GM in NORMAL SALINE 100 ML IV SCH (02:04)
[2018-02-12] MEDS: OXYCODONE-ACETAMINOPHEN 5-325 MG TABLET PO PRN ×2 (02:08→17:24)
[2018-02-12] MEDS: MORPHINE SULFATE 10 MG/ML INJ IV PRN ×2 (04:42→20:19)
[2018-02-12] MEDS: POTASSIUM CHLORIDE 10 MEQ TABLET.SA PO SCH (05:05)
[2018-02-12 05:10] LABS: ABSOLUTE BASOPHILS # (AUTO) 0.1 10^3/uL (0.0-0.2); ABSOLUTE EOSINOPHILS # (AUTO) 0.2 10^3/uL (0.0-0.6); ABSOLUTE LYMPHOCYTES (AUTO) 2.8 10^3/uL (0.5-4.7); ABSOLUTE MONOCYTES (AUTO) 1.3 10^3/uL (0.1-1.4); ABSOLUTE NEUT (AUTO) 6.3 10^3/uL (1.7-8.2); BASOPHILS % (AUTO) 0.6 % (0-2); EOSINOPHILS % (AUTO) 1.6 % (0-6); HEMOGLOBIN 9.1 g/dL (13.5-17.0); LYMPHOCYTES % (AUTO) 26.1 % (13-45); MEAN CORPUSCULAR HEMOGLOBIN 22.7 pg (27.0-33.4); MEAN CORPUSCULAR HGB CONC 31.4 g/dL (32.0-36.0); MEAN CORPUSCULAR VOLUME 72 fl (80-97); MONOCYTES % (AUTO) 12.3 % (3-13); PLATELET COUNT 321 10^3/uL (150-450); RED BLOOD COUNT 4.01 10^6/uL (4.35-5.55); RED CELL DISTRIBUTION WIDTH 15.5 % (11.5-14.0); SEGMENTED NEUTROPHILS % (AUTO) 59.4 % (42-78); TOTAL CELLS COUNTED % (AUTO) 100 %; WHITE BLOOD COUNT 10.6 10^3/uL (4.0-10.5)
[2018-02-12 05:15] LABS: ANION GAP 5 (5-19); BLOOD UREA NITROGEN 33 mg/dL (7-20); CALCIUM 8.3 mg/dL (8.4-10.2); CARBON DIOXIDE 35 mmol/L (22-30); CHLORIDE 101 mmol/L (98-107); GLUCOSE 44 mg/dL (75-110); POTASSIUM 3.7 mmol/L (3.6-5.0); SODIUM 141.1 mmol/L (137-145)
[2018-02-12] MEDS ORDERED: RINGERS SOLUTION 1,000 ML IV PRN (07:37)
[2018-02-12] MEDS: VANCOMYCIN HCL 1,500 MG in DEXTROSE 5%-WATER 250 ML IV SCH (09:15)
[2018-02-12] MEDS: DIGOXIN 0.25 MG TABLET PO SCH (09:16)
[2018-02-12] MEDS: APIXABAN 5 MG TABLET PO SCH ×2 (09:17→17:24)
[2018-02-12] MEDS: GABAPENTIN 300 MG CAPSULE PO SCH ×2 (09:17→21:03)
[2018-02-12] MEDS: CIPROFLOXACIN HCL 500 MG TABLET PO SCH ×2 (09:17→21:04)
[2018-02-12] MEDS: RINGERS SOLUTION,LACTATED 1,000 ML IV PRN ×2 (09:17→17:20)
[2018-02-12] MEDS: CLONAZEPAM 1 MG TABLET PO SCH ×2 (09:17→21:02)
[2018-02-12] MEDS: ASCORBIC ACID 500 MG TABLET PO SCH ×2 (09:18→17:24)
[2018-02-12] MEDS: MULTIVITAMIN TABLET PO SCH (09:18)
[2018-02-12] MEDS: ARIPIPRAZOLE 5 MG TABLET PO SCH (09:18)
[2018-02-12] MEDS: MORPHINE SULFATE SR 30 MG TABLET PO SCH ×2 (09:18→21:03)
[2018-02-12] MEDS: INSULIN DETEMIR 100 UNIT/ML 3 ML PEN SUBCUT SCH ×2 (09:21→22:13)
[2018-02-12] MEDS: VENLAFAXINE HCL 75 MG CAP.SR.24H PO SCH (09:21)
[2018-02-12] MEDS: POLYETHYLENE GLYCOL 3350 POWDER 17 GM/1 PACKET PO SCH (09:22)
[2018-02-12] MEDS: DOCUSATE SODIUM 100 MG CAPSULE PO SCH ×4 (09:22→17:28)
[2018-02-12] MEDS ORDERED: INSULIN DETEMIR 100 UNIT/ML 3 ML PEN SUBCUT SCH (10:00)
[2018-02-12] MEDS: AMLODIPINE BESYLATE 10 MG TABLET PO SCH (13:34)
[2018-02-12] MEDS: LISINOPRIL 10 MG TABLET PO SCH (13:34)
[2018-02-12] MEDS: METOPROLOL SUCCINATE 50 MG TAB.SR.24H PO SCH (14:00)
--- NOTE | 2018-02-12 14:11 | PDOC PROGRESS REPORT ---
Subjective Progress Note for:: 02/12/18 Subjective:: Pains left BKA stump Reason For Visit: ARF,DIABETES,AFIB,DIABETIC FOOT ULCER Physical Exam Vital Signs: Temp Pulse Resp BP Pulse Ox 98.0 F 79 18 96/56 L 96 02/12/18 11:06 02/12/18 11:06 02/12/18 11:06 02/12/18 11:06 02/12/18 11:06 Intake & Output 02/11/18 02/12/18 02/13/18 06:59 06:59 06:59 Intake Total 7550 3133 Output Total 3870 1400 Balance 3680 1733 Weight 132.9 kg 123.1 kg Exam: Dressing over stump intact and dry Results Laboratory Results: 02/12/18 04:30 02/12/18 04:30 02/11/18 02/11/18 02/12/18 23:53 23:53 04:30 WBC 10.6 H RBC 4.01 L Hgb 9.1 L Hct 29.0 L MCV 72 L MCH 22.7 L MCHC 31.4 L RDW 15.5 H Plt Count 321 Seg Neutrophils % 59.4 Lymphocytes % 26.1 Monocytes % 12.3 Eosinophils % 1.6 Basophils % 0.6 Absolute Neutrophils 6.3 Absolute Lymphocytes 2.8 Absolute Monocytes 1.3 Absolute Eosinophils 0.2 Absolute Basophils 0.1 Sodium Potassium Chloride Carbon Dioxide Anion Gap BUN Creatinine Est GFR ( Amer) Est GFR (Non-Af Amer) Glucose Calcium Magnesium Urine Color YELLOW Urine Appearance CLEAR Urine pH 5.0 Ur Specific [place] 1.016 Urine Protein NEGATIVE Urine Glucose (UA) NEGATIVE Urine Ketones NEGATIVE Urine Blood NEGATIVE Urine Nitrite NEGATIVE Ur Leukocyte Esterase TRACE H Urine WBC (Auto) 7 Urine RBC (Auto) 1 Stool Occult Blood NEGATIVE 02/12/18 04:30 WBC RBC Hgb Hct MCV MCH MCHC RDW Plt Count Seg Neutrophils % Lymphocytes % Monocytes % Eosinophils % Basophils % Absolute Neutrophils Absolute Lymphocytes Absolute Monocytes Absolute Eosinophils Absolute Basophils Sodium 141.1 Potassium 3.7 Chloride 101 Carbon Dioxide 35 H Anion Gap 5 BUN 33 H Creatinine 1.43 H Est GFR ( Amer) > 60 Est GFR (Non-Af Amer) 51 L Glucose 44 L Calcium 8.3 L Magnesium 2.2 Urine Color Urine Appearance Urine pH Ur Specific [place] Urine Protein Urine Glucose (UA) Urine Ketones Urine Blood Urine Nitrite Ur Leukocyte Esterase Urine WBC (Auto) Urine RBC (Auto) Stool Occult Blood 02/09/18 13:05 NT-Pro-B Natriuret Pep 4920 H Impressions: Foot X-Ray 02/07/18 23:17 IMPRESSION: 1. Osseous destruction of the fifth metatarsal and base of the proximal fifth phalanx. These findings suggest osteomyelitis. Correlation with contrast-enhanced MRI could provide additional characterization. Lower Extremity Ultrasound 02/08/18 00:00 IMPRESSION: NORMAL BILATERAL LOWER EXTREMITY ARTERIAL DOPPLER. Chest X-Ray 02/10/18 00:00 IMPRESSION: New left subclavian central venous catheter tip overlies the SVC above the level of the right atrium. No acute findings otherwise. Assessment & Plan - Diagnosis (1) A-fib Qualifiers: Atrial fibrillation type: chronic Qualified Code(s): I48.2 - Chronic atrial fibrillation Is this a current diagnosis for this admission?: Yes - Time Time Spent with patient: 15-24 minutes - Plan Summary Plan Summary: Continue stump elevation and IV antibiotics Change dressings in am
[2018-02-12] MEDS ORDERED: NORMAL SALINE 500 ML IV PRN ×2 (16:56→17:18)
--- NOTE | 2018-02-12 17:26 | PDOC PROGRESS REPORT ---
Subjective Progress Note for:: 02/12/18 Subjective:: Patient relates that was able to sleep last night. Pain is currently under control Review of systems All organ systems evaluated and negative except as in subjective All significant diagnostics and laboratories had been reviewed Reason For Visit: ARF,DIABETES,AFIB,DIABETIC FOOT ULCER Physical Exam Vital Signs: Temp Pulse Resp BP Pulse Ox 97.9 F 65 20 105/58 L 98 02/12/18 03:20 02/12/18 03:20 02/12/18 03:20 02/12/18 03:20 02/12/18 03:20 Intake & Output 02/11/18 02/12/18 02/13/18 06:59 06:59 06:59 Intake Total 7550 3133 Output Total 3870 1400 Balance 3680 1733 Weight 132.9 kg 123.1 kg General appearance: PRESENT: cooperative, obese Head exam: PRESENT: atraumatic, normocephalic Eye exam: PRESENT: conjunctiva pink, EOMI, PERRLA Neck exam: PRESENT: full ROM. ABSENT: JVD, lymphadenopathy, tenderness Respiratory exam: PRESENT: clear to auscultation terra Cardiovascular exam: PRESENT: irregular rhythm. ABSENT: diastolic murmur, systolic murmur Vascular exam: PRESENT: normal capillary refill GI/Abdominal exam: PRESENT: normal bowel sounds, soft. ABSENT: tenderness Extremities exam: PRESENT: full ROM, +1 edema Musculoskeletal exam: PRESENT: ambulatory Neurological exam: PRESENT: alert, awake, oriented to person, oriented to place , oriented to time, oriented to situation, CN II-XII grossly intact Psychiatric exam: PRESENT: appropriate affect, normal mood Skin exam: PRESENT: intact, normal color Results Laboratory Results: 02/12/18 04:30 02/12/18 04:30 02/11/18 02/11/18 02/12/18 23:53 23:53 04:30 WBC 10.6 H RBC 4.01 L Hgb 9.1 L Hct 29.0 L MCV 72 L MCH 22.7 L MCHC 31.4 L RDW 15.5 H Plt Count 321 Seg Neutrophils % 59.4 Lymphocytes % 26.1 Monocytes % 12.3 Eosinophils % 1.6 Basophils % 0.6 Absolute Neutrophils 6.3 Absolute Lymphocytes 2.8 Absolute Monocytes 1.3 Absolute Eosinophils 0.2 Absolute Basophils 0.1 Sodium Potassium Chloride Carbon Dioxide Anion Gap BUN Creatinine Est GFR ( Amer) Est GFR (Non-Af Amer) Glucose Calcium Magnesium Urine Color YELLOW Urine Appearance CLEAR Urine pH 5.0 Ur Specific [place] 1.016 Urine Protein NEGATIVE Urine Glucose (UA) NEGATIVE Urine Ketones NEGATIVE Urine Blood NEGATIVE Urine Nitrite NEGATIVE Ur Leukocyte Esterase TRACE H Urine WBC (Auto) 7 Urine RBC (Auto) 1 Stool Occult Blood NEGATIVE 02/12/18 04:30 WBC RBC Hgb Hct MCV MCH MCHC RDW Plt Count Seg Neutrophils % Lymphocytes % Monocytes % Eosinophils % Basophils % Absolute Neutrophils Absolute Lymphocytes Absolute Monocytes Absolute Eosinophils Absolute Basophils Sodium 141.1 Potassium 3.7 Chloride 101 Carbon Dioxide 35 H Anion Gap 5 BUN 33 H Creatinine 1.43 H Est GFR ( Amer) > 60 Est GFR (Non-Af Amer) 51 L Glucose 44 L Calcium 8.3 L Magnesium 2.2 Urine Color Urine Appearance Urine pH Ur Specific [place] Urine Protein Urine Glucose (UA) Urine Ketones Urine Blood Urine Nitrite Ur Leukocyte Esterase Urine WBC (Auto) Urine RBC (Auto) Stool Occult Blood 02/09/18 13:05 NT-Pro-B Natriuret Pep 4920 H Impressions: Foot X-Ray 02/07/18 23:17 IMPRESSION: 1. Osseous destruction of the fifth metatarsal and base of the proximal fifth phalanx. These findings suggest osteomyelitis. Correlation with contrast-enhanced MRI could provide additional characterization. Lower Extremity Ultrasound 02/08/18 00:00 IMPRESSION: NORMAL BILATERAL LOWER EXTREMITY ARTERIAL DOPPLER. Chest X-Ray 02/10/18 00:00 IMPRESSION: New left subclavian central venous catheter tip overlies the SVC above the level of the right atrium. No acute findings otherwise. Assessment & Plan - Diagnosis (1) A-fib Qualifiers: Atrial fibrillation type: chronic Qualified Code(s): I48.2 - Chronic atrial fibrillation Is this a current diagnosis for this admission?: Yes Plan: Stable. Continue present management. 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 BKA 02/10 and tolerated procedure well. Treatment rendered by amputation (4) Hyperglycemia Is this a current diagnosis for this admission?: Yes Plan: We will keep adjusting long-acting and short acting since may do better due to BKA (5) Osteomyelitis Qualifiers: Osteomyelitis type: other acute Osteomyelitis location: foot Laterality: right Qualified Code(s): M86.171 - Other acute osteomyelitis, right ankle and foot Is this a current diagnosis for this admission?: Yes Plan: Source removed (6) Depression Qualifiers: Major depression episode severity: unspecified Is this a current diagnosis for this admission?: Yes Plan: Continue present treatment (7) Chronic diastolic CHF (congestive heart failure) Is this a current diagnosis for this admission?: Yes Plan: Decrease Norvasc, lisinopril and Toprol and discontinue Lasix. Blood pressure now on the lower side suspect a right-sided component (8) Chronic pain syndrome Is this a current diagnosis for this admission?: Yes Plan: Continue present treatment (9) Sepsis Is this a current diagnosis for this admission?: Yes Plan: Due to Staphylococcus hominis. Continue vancomycin IV. Patient informed will require 14 day course vancomycin. To consult CM for LTAC evaluation (10) Hypokalemia Is this a current diagnosis for this admission?: Yes Plan: Resolved and to discontinue oral supplementation (11) Hypotension Qualifiers: Hypotension type: unspecified hypotension type Qualified Code(s): I95.9 - Hypotension, unspecified Is this a current diagnosis for this admission?: Yes Plan: Patient now on the dry side. Will discontinue diuresis IV and will judiciously challenged him with fluids. Also to adjust antihypertensive medication. May need to hold off - Time Time Spent with patient: 15-24 minutes - Inpatient Certification Based on my medical assessment, after consideration of the patient's comorbidities, presenting symptoms, or acuity I expect that the services needed warrant INPATIENT care.: Yes I certify that my determination is in accordance with my understanding of Medicare's requirements for reasonable and necessary INPATIENT services [42 CFR 412.3e].: Yes Medical Necessity: Need Close Monitoring Due to Risk of Patient Decompensation, Need For IV Fluids, Need for Pain Control, Need for IV Antibiotics
[2018-02-12] MEDS: VANCOMYCIN HCL 1,250 MG in DEXTROSE 5%-WATER 250 ML IV SCH (21:05)
[2018-02-13] MEDS: OXYCODONE-ACETAMINOPHEN 5-325 MG TABLET PO PRN ×3 (03:02→17:30)
[2018-02-13] MEDS: RINGERS SOLUTION,LACTATED 1,000 ML IV PRN (04:39)
[2018-02-13 05:35] LABS: ABSOLUTE BASOPHILS # (AUTO) 0.1 10^3/uL (0.0-0.2); ABSOLUTE EOSINOPHILS # (AUTO) 0.4 10^3/uL (0.0-0.6); ABSOLUTE LYMPHOCYTES (AUTO) 2.6 10^3/uL (0.5-4.7); ABSOLUTE MONOCYTES (AUTO) 1.4 10^3/uL (0.1-1.4); ABSOLUTE NEUT (AUTO) 7.7 10^3/uL (1.7-8.2); BASOPHILS % (AUTO) 0.9 % (0-2); EOSINOPHILS % (AUTO) 2.9 % (0-6); HEMATOCRIT 28.5 % (37.9-51.0); HEMOGLOBIN 8.8 g/dL (13.5-17.0); LYMPHOCYTES % (AUTO) 21.4 % (13-45); MEAN CORPUSCULAR HEMOGLOBIN 22.7 pg (27.0-33.4); MEAN CORPUSCULAR VOLUME 73 fl (80-97); MONOCYTES % (AUTO) 11.5 % (3-13); PLATELET COUNT 330 10^3/uL (150-450); RED BLOOD COUNT 3.89 10^6/uL (4.35-5.55); RED CELL DISTRIBUTION WIDTH 16.1 % (11.5-14.0); SEGMENTED NEUTROPHILS % (AUTO) 63.3 % (42-78); TOTAL CELLS COUNTED % (AUTO) 100 %; WHITE BLOOD COUNT 12.2 10^3/uL (4.0-10.5)
[2018-02-13 05:56] LABS: ANION GAP 5 (5-19); BLOOD UREA NITROGEN 37 mg/dL (7-20); CALCIUM 8.4 mg/dL (8.4-10.2); CARBON DIOXIDE 34 mmol/L (22-30); CHLORIDE 102 mmol/L (98-107); GLUCOSE 66 mg/dL (75-110); POTASSIUM 4.6 mmol/L (3.6-5.0); SODIUM 140.6 mmol/L (137-145)
[2018-02-13] MEDS: MORPHINE SULFATE 10 MG/ML INJ IV PRN ×3 (07:42→20:27)
[2018-02-13] MEDS ORDERED: NORMAL SALINE 250 ML IV PRN ×2 (08:43)
[2018-02-13] MEDS: CLONAZEPAM 1 MG TABLET PO SCH ×2 (09:10→21:48)
[2018-02-13] MEDS: AMLODIPINE BESYLATE 10 MG TABLET PO SCH (09:10)
[2018-02-13] MEDS: APIXABAN 5 MG TABLET PO SCH ×2 (09:10→17:31)
[2018-02-13] MEDS: METOPROLOL SUCCINATE 50 MG TAB.SR.24H PO SCH (09:11)
[2018-02-13] MEDS: GABAPENTIN 300 MG CAPSULE PO SCH ×2 (09:12→21:48)
[2018-02-13] MEDS: ASCORBIC ACID 500 MG TABLET PO SCH ×2 (09:12→17:31)
[2018-02-13] MEDS: ARIPIPRAZOLE 5 MG TABLET PO SCH (09:12)
[2018-02-13] MEDS: DOCUSATE SODIUM 100 MG CAPSULE PO SCH ×3 (09:12→17:37)
[2018-02-13] MEDS: MULTIVITAMIN TABLET PO SCH (09:13)
[2018-02-13] MEDS: LISINOPRIL 10 MG TABLET PO SCH (09:13)
[2018-02-13] MEDS: DIGOXIN 0.25 MG TABLET PO SCH (09:14)
[2018-02-13] MEDS: MORPHINE SULFATE SR 30 MG TABLET PO SCH ×2 (09:14→21:47)
[2018-02-13] MEDS: VENLAFAXINE HCL 75 MG CAP.SR.24H PO SCH (09:15)
[2018-02-13] MEDS: VANCOMYCIN HCL 1,250 MG in DEXTROSE 5%-WATER 250 ML IV SCH ×2 (09:16→21:50)
[2018-02-13] MEDS: INSULIN DETEMIR 100 UNIT/ML 3 ML PEN SUBCUT SCH ×2 (09:19→22:47)
[2018-02-13] MEDS: POLYETHYLENE GLYCOL 3350 POWDER 17 GM/1 PACKET PO SCH (09:21)
--- NOTE | 2018-02-13 14:03 | PDOC PROGRESS REPORT ---
Subjective Progress Note for:: 02/13/18 Subjective:: Pains right BKA stump Reason For Visit: ARF,DIABETES,AFIB,DIABETIC FOOT ULCER Physical Exam Vital Signs: Temp Pulse Resp BP Pulse Ox 98.1 F 90 18 116/62 97 02/13/18 10:59 02/13/18 10:59 02/13/18 10:59 02/13/18 10:59 02/13/18 10:59 Intake & Output 02/12/18 02/13/18 02/14/18 06:59 06:59 06:59 Intake Total 3133 3409 Output Total 1400 1075 Balance 1733 2334 Weight 123.1 kg 128.1 kg Exam: Stump looks good and viable. Some swelling Dressings changed. Continue IV antibiotics Results Laboratory Results: 02/13/18 04:45 02/13/18 04:45 02/13/18 02/13/18 02/13/18 04:45 04:45 09:09 WBC 12.2 H RBC 3.89 L Hgb 8.8 L Hct 28.5 L MCV 73 L MCH 22.7 L MCHC 31.0 L RDW 16.1 H Plt Count 330 Seg Neutrophils % 63.3 Lymphocytes % 21.4 Monocytes % 11.5 Eosinophils % 2.9 Basophils % 0.9 Absolute Neutrophils 7.7 Absolute Lymphocytes 2.6 Absolute Monocytes 1.4 Absolute Eosinophils 0.4 Absolute Basophils 0.1 Sodium 140.6 Potassium 4.6 Chloride 102 Carbon Dioxide 34 H Anion Gap 5 BUN 37 H Creatinine 1.47 H Est GFR ( Amer) 59 L Est GFR (Non-Af Amer) 49 L Glucose 66 L Calcium 8.4 Magnesium 2.1 Blood Type O POSITIVE Antibody Screen NEGATIVE 02/09/18 13:05 NT-Pro-B Natriuret Pep 4920 H Impressions: Foot X-Ray 02/07/18 23:17 IMPRESSION: 1. Osseous destruction of the fifth metatarsal and base of the proximal fifth phalanx. These findings suggest osteomyelitis. Correlation with contrast-enhanced MRI could provide additional characterization. Lower Extremity Ultrasound 02/08/18 00:00 IMPRESSION: NORMAL BILATERAL LOWER EXTREMITY ARTERIAL DOPPLER. Chest X-Ray 02/10/18 00:00 IMPRESSION: New left subclavian central venous catheter tip overlies the SVC above the level of the right atrium. No acute findings otherwise. Assessment & Plan - Diagnosis (1) A-fib Qualifiers: Atrial fibrillation type: chronic Qualified Code(s): I48.2 - Chronic atrial fibrillation Is this a current diagnosis for this admission?: Yes - Time Time Spent with patient: 15-24 minutes - Plan Summary Plan Summary: Dressings changed Continue elevation PT to get pt out of bed and hopefully can D/C [place] soon Continue IV antibiotics
--- NOTE | 2018-02-13 15:24 | PDOC PROGRESS REPORT ---
Subjective Progress Note for:: 02/13/18 Subjective:: Patient complains of having some pain however he had a recent change of dressings. Review of systems All organ systems evaluated and negative except as in subjective All significant diagnostics and laboratories had been reviewed Reason For Visit: ARF,DIABETES,AFIB,DIABETIC FOOT ULCER Physical Exam Vital Signs: Temp Pulse Resp BP Pulse Ox 97.7 F 76 16 126/73 H 94 02/13/18 03:06 02/13/18 03:06 02/13/18 03:06 02/13/18 03:06 02/13/18 03:06 Intake & Output 02/11/18 02/12/18 02/13/18 06:59 06:59 06:59 Intake Total 7550 3133 2271 Output Total 3870 1400 675 Balance 3680 1733 1596 Weight 132.9 kg 123.1 kg General appearance: PRESENT: cooperative, morbidly obese Head exam: PRESENT: atraumatic, normocephalic Eye exam: PRESENT: conjunctiva pink, EOMI, PERRLA Mouth exam: PRESENT: moist Neck exam: PRESENT: full ROM. ABSENT: JVD, lymphadenopathy, tenderness Respiratory exam: PRESENT: clear to auscultation terra Cardiovascular exam: PRESENT: irregular rhythm. ABSENT: diastolic murmur, systolic murmur Vascular exam: PRESENT: normal capillary refill GI/Abdominal exam: PRESENT: normal bowel sounds, soft. ABSENT: tenderness Extremities exam: PRESENT: full ROM, +2 edema Musculoskeletal exam: ABSENT: ambulatory Neurological exam: PRESENT: alert, awake, oriented to person, oriented to place , oriented to time, oriented to situation, CN II-XII grossly intact Psychiatric exam: PRESENT: appropriate affect, normal mood Skin exam: PRESENT: pallor Results Laboratory Results: 02/13/18 04:45 02/13/18 04:45 02/13/18 02/13/18 04:45 04:45 WBC 12.2 H RBC 3.89 L Hgb 8.8 L Hct 28.5 L MCV 73 L MCH 22.7 L MCHC 31.0 L RDW 16.1 H Plt Count 330 Seg Neutrophils % 63.3 Lymphocytes % 21.4 Monocytes % 11.5 Eosinophils % 2.9 Basophils % 0.9 Absolute Neutrophils 7.7 Absolute Lymphocytes 2.6 Absolute Monocytes 1.4 Absolute Eosinophils 0.4 Absolute Basophils 0.1 Sodium 140.6 Potassium 4.6 Chloride 102 Carbon Dioxide 34 H Anion Gap 5 BUN 37 H Creatinine 1.47 H Est GFR ( Amer) 59 L Est GFR (Non-Af Amer) 49 L Glucose 66 L Calcium 8.4 Magnesium 2.1 02/09/18 13:05 NT-Pro-B Natriuret Pep 4920 H Impressions: Foot X-Ray 02/07/18 23:17 IMPRESSION: 1. Osseous destruction of the fifth metatarsal and base of the proximal fifth phalanx. These findings suggest osteomyelitis. Correlation with contrast-enhanced MRI could provide additional characterization. Lower Extremity Ultrasound 02/08/18 00:00 IMPRESSION: NORMAL BILATERAL LOWER EXTREMITY ARTERIAL DOPPLER. Chest X-Ray 02/10/18 00:00 IMPRESSION: New left subclavian central venous catheter tip overlies the SVC above the level of the right atrium. No acute findings otherwise. Assessment & Plan - Diagnosis (1) A-fib Qualifiers: Atrial fibrillation type: chronic Qualified Code(s): I48.2 - Chronic atrial fibrillation Is this a current diagnosis for this admission?: Yes Plan: Stable. Continue present management. Continue eliquis (2) Acute kidney injury (nontraumatic) Is this a current diagnosis for this admission?: Yes Plan: Renal all now due to volume contraction. Trend (3) Diabetic foot ulcer Qualifiers: Diabetic foot ulcer location: midfoot Diabetes mellitus type: type 2 Laterality: right Non-pressure ulcer stage: with necrosis of bone Qualified Code(s): E11.621 - Type 2 diabetes mellitus with foot ulcer; L97.414 - Non- pressure chronic ulcer of right heel and midfoot with necrosis of bone; L97.414 - Non-pressure chronic ulcer of right heel and midfoot with necrosis of bone; L97.414 - Non-pressure chronic ulcer of right heel and midfoot with necrosis of bone; L97.414 - Non-pressure chronic ulcer of right heel and midfoot with necrosis of bone Is this a current diagnosis for this admission?: Yes Plan: Continue multivitamins and vitamin C. BKA 02/10 and tolerated procedure well. Treatment rendered by amputation. Will need placement (4) Hyperglycemia Is this a current diagnosis for this admission?: Yes Plan: Continue present regimen and watch for hypoglycemia (5) Osteomyelitis Qualifiers: Osteomyelitis type: other acute Osteomyelitis location: foot Laterality: right Qualified Code(s): M86.171 - Other acute osteomyelitis, right ankle and foot Is this a current diagnosis for this admission?: Yes Plan: Source removed (6) Depression Qualifiers: Major depression episode severity: unspecified Is this a current diagnosis for this admission?: Yes Plan: Continue present treatment. Doing better (7) Chronic diastolic CHF (congestive heart failure) Is this a current diagnosis for this admission?: Yes Plan: Blood pressure improved will continue current regimen (8) Chronic pain syndrome Is this a current diagnosis for this admission?: Yes Plan: Continue present treatment (9) Sepsis Is this a current diagnosis for this admission?: Yes Plan: Due to Staphylococcus hominis. Patient also grew Streptococcus angionosus. Continue vancomycin IV. Patient informed will require 14 day course vancomycin. CM consulted for LTAC evaluation (10) Hypokalemia Is this a current diagnosis for this admission?: Yes Plan: Resolved (11) Hypotension Qualifiers: Hypotension type: unspecified hypotension type Qualified Code(s): I95.9 - Hypotension, unspecified Is this a current diagnosis for this admission?: Yes Plan: Resolved after fluid bolus (12) Anemia Qualifiers: Iron deficiency anemia type: chronic blood loss Is this a current diagnosis for this admission?: Yes Plan: To transfuse 1 unit of packed red blood cell since patient has cardiac history - Time Time Spent with patient: 15-24 minutes Medications reviewed and adjusted accordingly: Yes Anticipated discharge: Other - For LTAC Within: when bed available - Inpatient Certification Based on my medical assessment, after consideration of the patient's comorbidities, presenting symptoms, or acuity I expect that the services needed warrant INPATIENT care.: Yes I certify that my determination is in accordance with my understanding of Medicare's requirements for reasonable and necessary INPATIENT services [42 CFR 412.3e].: Yes Medical Necessity: Need Close Monitoring Due to Risk of Patient Decompensation, Need for Pain Control, Need for IV Antibiotics
[2018-02-13 20:03] LABS: ABSOLUTE BASOPHILS # (AUTO) 0.1 10^3/uL (0.0-0.2); ABSOLUTE EOSINOPHILS # (AUTO) 0.4 10^3/uL (0.0-0.6); ABSOLUTE LYMPHOCYTES (AUTO) 2.6 10^3/uL (0.5-4.7); ABSOLUTE MONOCYTES (AUTO) 1.4 10^3/uL (0.1-1.4); ABSOLUTE NEUT (AUTO) 8.1 10^3/uL (1.7-8.2); BASOPHILS % (AUTO) 0.9 % (0-2); HEMATOCRIT 28.5 % (37.9-51.0); HEMOGLOBIN 9.1 g/dL (13.5-17.0); LYMPHOCYTES % (AUTO) 20.6 % (13-45); MEAN CORPUSCULAR HEMOGLOBIN 23.3 pg (27.0-33.4); MEAN CORPUSCULAR HGB CONC 31.8 g/dL (32.0-36.0); MEAN CORPUSCULAR VOLUME 74 fl (80-97); PLATELET COUNT 311 10^3/uL (150-450); RED BLOOD COUNT 3.88 10^6/uL (4.35-5.55); RED CELL DISTRIBUTION WIDTH 16.1 % (11.5-14.0); SEGMENTED NEUTROPHILS % (AUTO) 64.5 % (42-78); TOTAL CELLS COUNTED % (AUTO) 100 %; WHITE BLOOD COUNT 12.6 10^3/uL (4.0-10.5)
[2018-02-14 05:15] LABS: HEMATOCRIT 28.7 % (37.9-51.0); MEAN CORPUSCULAR HEMOGLOBIN 23.4 pg (27.0-33.4); MEAN CORPUSCULAR HGB CONC 31.6 g/dL (32.0-36.0); MEAN CORPUSCULAR VOLUME 74 fl (80-97); PLATELET COUNT 307 10^3/uL (150-450); RED BLOOD COUNT 3.87 10^6/uL (4.35-5.55); RED CELL DISTRIBUTION WIDTH 16.4 % (11.5-14.0); WHITE BLOOD COUNT 11.6 10^3/uL (4.0-10.5)
[2018-02-14 05:38] LABS: APPEARANCE,URINE SLIGHTLY-CLOUDY; BILIRUBIN,URINE NEGATIVE (NEGATIVE); COLOR,URINE YELLOW; GLUCOSE, URINE NEGATIVE (NEGATIVE); KETONES,URINE NEGATIVE (NEGATIVE); LEUKOCYTE ESTERASE,URINE NEGATIVE (NEGATIVE); NITRITE,URINE NEGATIVE (NEGATIVE); PROTEIN,URINE NEGATIVE (NEGATIVE); URINE SPECIFIC GRAVITY 1.015; UROBILINOGEN,URINE NEGATIVE mg/dL (<2.0)
[2018-02-14 05:41] LABS: BLOOD UREA NITROGEN 43 mg/dL (7-20); CALCIUM 8.5 mg/dL (8.4-10.2); CHLORIDE 101 mmol/L (98-107); GLUCOSE 120 mg/dL (75-110); POTASSIUM 4.5 mmol/L (3.6-5.0)
[2018-02-14 05:47] LABS: ANION GAP 7 (5-19); CARBON DIOXIDE 33 mmol/L (22-30); SODIUM 140.9 mmol/L (137-145)
--- NOTE | 2018-02-14 09:37 | PDOC PROGRESS REPORT ---
Subjective Progress Note for:: 02/14/18 Reason For Visit: ARF,DIABETES,AFIB,DIABETIC FOOT ULCER Postoperative day 4 status post right BKA, no complications thus far. Got up with PT yesterday side of bed. Physical Exam Vital Signs: Temp Pulse Resp BP Pulse Ox 98.7 F 102 H 18 140/71 H 95 02/14/18 07:29 02/14/18 07:29 02/14/18 07:29 02/14/18 07:29 02/14/18 08:16 Intake & Output 02/13/18 02/14/18 02/15/18 06:59 06:59 06:59 Intake Total 3409 2993 Output Total 1075 1200 Balance 2334 1793 Weight 128.1 kg 129.6 kg General appearance: PRESENT: no acute distress Musculoskeletal exam: PRESENT: other - Knee immobilizer removed; underlying dressing dry and intact Results Laboratory Results: 02/14/18 04:40 02/14/18 04:40 02/13/18 02/13/18 02/14/18 09:09 19:40 03:30 WBC 12.6 H RBC 3.88 L Hgb 9.1 L Hct 28.5 L MCV 74 L MCH 23.3 L MCHC 31.8 L RDW 16.1 H Plt Count 311 Seg Neutrophils % 64.5 Lymphocytes % 20.6 Monocytes % 11.0 Eosinophils % 3.0 Basophils % 0.9 Absolute Neutrophils 8.1 Absolute Lymphocytes 2.6 Absolute Monocytes 1.4 Absolute Eosinophils 0.4 Absolute Basophils 0.1 Sodium Potassium Chloride Carbon Dioxide Anion Gap BUN Creatinine Est GFR ( Amer) Est GFR (Non-Af Amer) Glucose Calcium Magnesium Urine Color Urine Appearance Urine pH Ur Specific [place] Urine Protein Urine Glucose (UA) Urine Ketones Urine Blood Urine Nitrite Ur Leukocyte Esterase Urine WBC (Auto) Urine RBC (Auto) Stool Occult Blood POSITIVE Blood Type O POSITIVE Antibody Screen NEGATIVE 02/14/18 02/14/18 02/14/18 04:40 04:40 04:40 WBC 11.6 H RBC 3.87 L Hgb 9.0 L Hct 28.7 L MCV 74 L MCH 23.4 L MCHC 31.6 L RDW 16.4 H Plt Count 307 Seg Neutrophils % Lymphocytes % Monocytes % Eosinophils % Basophils % Absolute Neutrophils Absolute Lymphocytes Absolute Monocytes Absolute Eosinophils Absolute Basophils Sodium 140.9 Potassium 4.5 Chloride 101 Carbon Dioxide 33 H Anion Gap 7 BUN 43 H Creatinine 1.73 H Est GFR ( Amer) 49 L Est GFR (Non-Af Amer) 41 L Glucose 120 H Calcium 8.5 Magnesium 2.3 Urine Color YELLOW Urine Appearance SLIGHTLY-CLOUDY Urine pH 5.0 Ur Specific [place] 1.015 Urine Protein NEGATIVE Urine Glucose (UA) NEGATIVE Urine Ketones NEGATIVE Urine Blood SMALL H Urine Nitrite NEGATIVE Ur Leukocyte Esterase NEGATIVE Urine WBC (Auto) 3 Urine RBC (Auto) 3 Stool Occult Blood Blood Type Antibody Screen 02/08/18 22:30 Foot - Right Heel Gram Stain - Final 02/08/18 22:30 Foot - Right Heel Wound Culture - Final Proteus Mirabilis Staphylococcus Aureus Streptococcus Constellatus No Anaerobic Organisms 02/09/18 02/14/18 13:05 04:40 NT-Pro-B Natriuret Pep 4920 H 4550 H Impressions: Foot X-Ray 02/07/18 23:17 IMPRESSION: 1. Osseous destruction of the fifth metatarsal and base of the proximal fifth phalanx. These findings suggest osteomyelitis. Correlation with contrast-enhanced MRI could provide additional characterization. Lower Extremity Ultrasound 02/08/18 00:00 IMPRESSION: NORMAL BILATERAL LOWER EXTREMITY ARTERIAL DOPPLER. Chest X-Ray 02/10/18 00:00 IMPRESSION: New left subclavian central venous catheter tip overlies the SVC above the level of the right atrium. No acute findings otherwise. 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 Patient range of knee flexion very good. Recommendations: 1. Will order dressing changes for every 48 hours to this closed incision 2. Patient to continue work with physical therapy; may be a candidate for short rehab stay. 3. Patient can follow-up with [facility] in approximately 1-2 weeks after discharge. 4. There is no strong indication for continued intravenous antibiotics at this time. Sign off; reconsult if needed - Time Time Spent with patient: 15-24 minutes Smoking Cessation Education: over 10 minutes
[2018-02-14] MEDS: AMLODIPINE BESYLATE 10 MG TABLET PO SCH (11:50)
[2018-02-14] MEDS: DOCUSATE SODIUM 100 MG CAPSULE PO SCH ×2 (11:50→18:37)
[2018-02-14] MEDS: METOPROLOL SUCCINATE 50 MG TAB.SR.24H PO SCH (11:50)
[2018-02-14] MEDS: LISINOPRIL 10 MG TABLET PO SCH (11:51)
[2018-02-14] MEDS: GABAPENTIN 300 MG CAPSULE PO SCH ×2 (11:51→21:11)
[2018-02-14] MEDS: CLONAZEPAM 1 MG TABLET PO SCH ×2 (11:52→21:11)
[2018-02-14] MEDS: MORPHINE SULFATE SR 30 MG TABLET PO SCH ×2 (11:52→21:11)
[2018-02-14] MEDS: ARIPIPRAZOLE 5 MG TABLET PO SCH (11:52)
[2018-02-14] MEDS: MULTIVITAMIN TABLET PO SCH (11:52)
[2018-02-14] MEDS: ASCORBIC ACID 500 MG TABLET PO SCH ×2 (11:52→18:37)
[2018-02-14] MEDS: DIGOXIN 0.25 MG TABLET PO SCH (11:52)
[2018-02-14] MEDS: VENLAFAXINE HCL 75 MG CAP.SR.24H PO SCH (11:53)
[2018-02-14] MEDS: VANCOMYCIN HCL 1,250 MG in DEXTROSE 5%-WATER 250 ML IV SCH (11:53)
[2018-02-14] MEDS: INSULIN DETEMIR 100 UNIT/ML 3 ML PEN SUBCUT SCH ×2 (11:54→21:59)
[2018-02-14] MEDS: POLYETHYLENE GLYCOL 3350 POWDER 17 GM/1 PACKET PO SCH (11:55)
[2018-02-14 12:42] LABS: VANCOMYCIN,TROUGH 31.6 ug/mL (5.0-20.0)
[2018-02-14 14:05] LABS: ABSOLUTE RETICS # 0.045 10^6/uL (0.028-0.122); RETICULOCYTE COUNT (AUTO) 1.15 % (0.66-2.85)
[2018-02-14 15:36] LABS: FOLATE 7.48 ng/mL (>2.76)
[2018-02-14 15:39] LABS: IRON(TIBC) < 10.1 ug/dL (49-181)
--- NOTE | 2018-02-14 18:19 | PDOC CONSULTATION ---
Consultation Consult Date: 02/14/18 Attending physician:: JAYDE READ Consult reason:: heme positive stools History of Present Illness Admission Date/PCP: 02/08/18 03:38 History of Present Illness: Asked to see this patient by the hospitalist service. patient was admitted and recently had amputation due to diabetic ulcer however needed to be started on Eliquis due to A.Fib noted to have heme positive stools iron studies indicate an iron deficiency anemia previously had been on Coumadin prior to his current presentation hgb has been stable but on the low side patient will probably need to stop his Eliquis for at least 48 hours prior to GI evaluation patient will likely need both EGD and a colonoscopy the other questions is one of whether or not patient will be able to prep Past Medical History Cardiac Medical History: Reports: Atrial Fibrillation, Congestive Heart Failure , Hypertension Pulmonary Medical History: Reports: None EENT Medical History: Reports: None Neurological Medical History: Reports: None Endocrine Medical History: Reports: Diabetes Mellitus Type 2, Obesity Renal/ Medical History: Reports: None Malignancy Medical History: Reports: None GI Medical History: Reports: None Musculoskeltal Medical History: Reports: Other - Osteomyelitis of the left hand and right foot Skin Medical History: Reports: Other - Multiple poorly healed ulcers of the hands bilaterally and right foot Psychiatric Medical History: Reports: None Denies: Alcohol Dependency, Attention Deficit Hyperactivity Disorder Traumatic Medical History: Reports: None Hematology: Reports: None Infectious Medical History: Reports: None Past Surgical History Past Surgical History: Reports: Orthopedic Surgery - left 4th finger amputation 2016 at [facility]. Due to osteomyeli Social History Lives with: Family Smoking Status: Never Smoker Frequency of Alcohol Use: None Hx Recreational Drug Use: No Drugs: None - Advance Directive Resuscitation Status: Full Code Family History Family History: DM, Hypertension Parental Family History Reviewed: Yes Children Family History Reviewed: Unknown Sibling(s) Family History Reviewed.: Unknown Medication/Allergy Home Medications: Aspirin [Aspirin EC] 81 mg PO DAILY 02/08/18 Clonazepam [Klonopin] 0.5 mg PO BIDP PRN 02/08/18 Digoxin [Digitek] 250 mcg PO DAILY 02/08/18 Furosemide [Lasix 40 mg Tablet] 40 mg PO BID 02/08/18 Glipizide [Glocotrol 10 Mg Tablet] 10 mg PO BID 02/08/18 Insulin Aspart Prot/Insuln Asp [Novolog Mix 70-30 Flexpen Syrn] 50 unit SQ DAILY 02/08/18 Morphine Sulfate [Morphine Sulfate ER] 60 mg PO DAILY 02/08/18 Pravastatin Sodium [Pravachol] 20 mg PO QHS 02/08/18 Pregabalin [Lyrica] 300 mg PO Q12 02/08/18 Sertraline HCl [Zoloft 50 mg Tablet] 100 mg PO DAILY 02/08/18 Tizanidine HCl [Zanaflex 4 Mg Tablet] 8 mg PO Q8 02/08/18 Warfarin Sodium [Coumadin 5 mg Tablet] 5 mg PO Q48H PRN MDD see patient comments 02/08/18 Warfarin Sodium [Coumadin 7.5 mg Tablet] 7.5 mg PO Q48H MDD see patient comments 02/08/18 Allergies/Adverse Reactions: No Known Allergies Allergy (Unverified 02/07/18 23:02) Review of Systems Constitutional: ABSENT: headache(s), night sweats Eyes: ABSENT: visual disturbances Ears: ABSENT: hearing changes Nose, Mouth, and Throat: ABSENT: sore throat Cardiovascular: ABSENT: orthropnea, palpitations Respiratory: ABSENT: dyspnea, hemoptysis Gastrointestinal: ABSENT: hematochezia, melena, nausea, vomiting Genitourinary: ABSENT: hematuria Musculoskeletal: ABSENT: joint swelling Integumentary: ABSENT: pruritus Neurological: ABSENT: syncope, tingling, tremor(s), vertigo Endocrine: ABSENT: polydipsia, polyphagia Hematologic/Lymphatic: ABSENT: easy bruising Physical Exam Vital Signs: Temp Pulse Resp BP Pulse Ox 98.0 F 68 18 120/72 87 L 02/14/18 15:40 02/14/18 15:40 02/14/18 15:40 02/14/18 15:40 02/14/18 15:40 Intake & Output 02/13/18 02/14/18 02/15/18 06:59 06:59 06:59 Intake Total 3409 2993 835 Output Total 1075 1200 Balance 2334 1793 835 Weight 128.1 kg 129.6 kg General appearance: PRESENT: mild distress, well-developed, well-nourished Head exam: PRESENT: atraumatic - d, normocephalic Eye exam: PRESENT: EOMI, PERRLA. ABSENT: nystagmus, scleral icterus Mouth exam: PRESENT: moist, neck supple Throat exam: ABSENT: tonsillar exudate, tonsillogmegaly Neck exam: ABSENT: meningismus, tenderness, thyromegaly Respiratory exam: PRESENT: symmetrical, unlabored. ABSENT: tachypnea, wheezes Cardiovascular exam: PRESENT: irregular rhythm GI/Abdominal exam: PRESENT: soft. ABSENT: rebound, rigid, tenderness Extremities exam: PRESENT: pedal edema Neurological exam: PRESENT: alert, awake, oriented to time, oriented to situation, CN II-XII grossly intact Focused psych exam: ABSENT: restlessness Skin exam: PRESENT: normal color. ABSENT: mottled, pallor, urticaria, vesicles Results Laboratory Results: 02/14/18 04:40 02/14/18 04:40 02/13/18 02/14/18 02/14/18 19:40 03:30 04:40 WBC 12.6 H RBC 3.88 L Hgb 9.1 L Hct 28.5 L MCV 74 L MCH 23.3 L MCHC 31.8 L RDW 16.1 H Plt Count 311 Seg Neutrophils % 64.5 Lymphocytes % 20.6 Monocytes % 11.0 Eosinophils % 3.0 Basophils % 0.9 Absolute Neutrophils 8.1 Absolute Lymphocytes 2.6 Absolute Monocytes 1.4 Absolute Eosinophils 0.4 Absolute Basophils 0.1 Retic Count (auto) Absolute Retic Sodium Potassium Chloride Carbon Dioxide Anion Gap BUN Creatinine Est GFR ( Amer) Est GFR (Non-Af Amer) Glucose Calcium Magnesium Iron TIBC % Saturation Ferritin Vitamin B12 Folate Urine Color YELLOW Urine Appearance SLIGHTLY-CLOUDY Urine pH 5.0 Ur Specific [place] 1.015 Urine Protein NEGATIVE Urine Glucose (UA) NEGATIVE Urine Ketones NEGATIVE Urine Blood SMALL H Urine Nitrite NEGATIVE Ur Leukocyte Esterase NEGATIVE Urine WBC (Auto) 3 Urine RBC (Auto) 3 Stool Occult Blood POSITIVE 02/14/18 02/14/18 02/14/18 04:40 04:40 04:40 WBC 11.6 H RBC 3.87 L Hgb 9.0 L Hct 28.7 L MCV 74 L MCH 23.4 L MCHC 31.6 L RDW 16.4 H Plt Count 307 Seg Neutrophils % Lymphocytes % Monocytes % Eosinophils % Basophils % Absolute Neutrophils Absolute Lymphocytes Absolute Monocytes Absolute Eosinophils Absolute Basophils Retic Count (auto) 1.15 Absolute Retic 0.045 Sodium 140.9 Potassium 4.5 Chloride 101 Carbon Dioxide 33 H Anion Gap 7 BUN 43 H Creatinine 1.73 H Est GFR ( Amer) 49 L Est GFR (Non-Af Amer) 41 L Glucose 120 H Calcium 8.5 Magnesium 2.3 Iron TIBC % Saturation Ferritin Vitamin B12 Folate Urine Color Urine Appearance Urine pH Ur Specific [place] Urine Protein Urine Glucose (UA) Urine Ketones Urine Blood Urine Nitrite Ur Leukocyte Esterase Urine WBC (Auto) Urine RBC (Auto) Stool Occult Blood 02/14/18 04:40 WBC RBC Hgb Hct MCV MCH MCHC RDW Plt Count Seg Neutrophils % Lymphocytes % Monocytes % Eosinophils % Basophils % Absolute Neutrophils Absolute Lymphocytes Absolute Monocytes Absolute Eosinophils Absolute Basophils Retic Count (auto) Absolute Retic Sodium Potassium Chloride Carbon Dioxide Anion Gap BUN Creatinine Est GFR ( Amer) Est GFR (Non-Af Amer) Glucose Calcium Magnesium Iron < 10.1 L TIBC 184 L % Saturation UNABLE TO CALCULATE Ferritin 207.00 Vitamin B12 484.0 Folate 7.48 Urine Color Urine Appearance Urine pH Ur Specific [place] Urine Protein Urine Glucose (UA) Urine Ketones Urine Blood Urine Nitrite Ur Leukocyte Esterase Urine WBC (Auto) Urine RBC (Auto) Stool Occult Blood 02/08/18 22:30 Foot - Right Heel Gram Stain - Final 02/08/18 22:30 Foot - Right Heel Wound Culture - Final Proteus Mirabilis Staphylococcus Aureus Streptococcus Constellatus No Anaerobic Organisms 02/09/18 02/14/18 13:05 04:40 NT-Pro-B Natriuret Pep 4920 H 4550 H Impressions: Foot X-Ray 02/07/18 23:17 IMPRESSION: 1. Osseous destruction of the fifth metatarsal and base of the proximal fifth phalanx. These findings suggest osteomyelitis. Correlation with contrast-enhanced MRI could provide additional characterization. Lower Extremity Ultrasound 02/08/18 00:00 IMPRESSION: NORMAL BILATERAL LOWER EXTREMITY ARTERIAL DOPPLER. Chest X-Ray 02/10/18 00:00 IMPRESSION: New left subclavian central venous catheter tip overlies the SVC above the level of the right atrium. No acute findings otherwise. 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
[2018-02-14] MEDS: APIXABAN 5 MG TABLET PO SCH (18:37)
[2018-02-14] MEDS: OXYCODONE-ACETAMINOPHEN 5-325 MG TABLET PO PRN (19:32)
--- NOTE | 2018-02-15 05:12 | PDOC PROGRESS REPORT ---
Subjective Progress Note for:: 02/14/18 Subjective:: No complainst. Nurse reported heme positive stool Review of systems All organ systems evaluated and negative except as in subjective All significant diagnostics and laboratories had been reviewed Reason For Visit: ARF,DIABETES,AFIB,DIABETIC FOOT ULCER Physical Exam Vital Signs: Temp Pulse Resp BP Pulse Ox 98.1 F 71 20 128/67 H 94 02/15/18 03:42 02/15/18 03:42 02/15/18 03:42 02/15/18 03:42 02/15/18 03:42 Intake & Output 02/13/18 02/14/18 02/15/18 06:59 06:59 06:59 Intake Total 3409 2993 835 Output Total 1075 1200 1000 Balance 2334 1793 -165 Weight 128.1 kg 129.6 kg 128.7 kg General appearance: PRESENT: cooperative, obese Head exam: PRESENT: atraumatic, normocephalic Eye exam: PRESENT: EOMI, PERRLA Neck exam: PRESENT: full ROM. ABSENT: JVD, lymphadenopathy, tenderness Respiratory exam: PRESENT: clear to auscultation terra Cardiovascular exam: PRESENT: irregular rhythm. ABSENT: diastolic murmur, systolic murmur GI/Abdominal exam: PRESENT: normal bowel sounds, soft. ABSENT: tenderness Extremities exam: PRESENT: full ROM, +2 edema Musculoskeletal exam: ABSENT: ambulatory Neurological exam: PRESENT: alert, awake, oriented to person, oriented to place , oriented to time, oriented to situation, CN II-XII grossly intact Psychiatric exam: PRESENT: appropriate affect, normal mood Skin exam: PRESENT: pallor Results Laboratory Results: 02/14/18 04:40 02/14/18 04:40 02/14/18 02/14/18 02/14/18 04:40 04:40 04:40 WBC 11.6 H RBC 3.87 L Hgb 9.0 L Hct 28.7 L MCV 74 L MCH 23.4 L MCHC 31.6 L RDW 16.4 H Plt Count 307 Retic Count (auto) Absolute Retic Sodium 140.9 Potassium 4.5 Chloride 101 Carbon Dioxide 33 H Anion Gap 7 BUN 43 H Creatinine 1.73 H Est GFR ( Amer) 49 L Est GFR (Non-Af Amer) 41 L Glucose 120 H Calcium 8.5 Magnesium 2.3 Iron TIBC % Saturation Ferritin Vitamin B12 Folate Urine Color YELLOW Urine Appearance SLIGHTLY-CLOUDY Urine pH 5.0 Ur Specific [place] 1.015 Urine Protein NEGATIVE Urine Glucose (UA) NEGATIVE Urine Ketones NEGATIVE Urine Blood SMALL H Urine Nitrite NEGATIVE Ur Leukocyte Esterase NEGATIVE Urine WBC (Auto) 3 Urine RBC (Auto) 3 Stool Occult Blood 02/14/18 02/14/18 02/15/18 04:40 04:40 04:00 WBC RBC Hgb Hct MCV MCH MCHC RDW Plt Count Retic Count (auto) 1.15 Absolute Retic 0.045 Sodium Potassium Chloride Carbon Dioxide Anion Gap BUN Creatinine Est GFR ( Amer) Est GFR (Non-Af Amer) Glucose Calcium Magnesium Iron < 10.1 L TIBC 184 L % Saturation UNABLE TO CALCULATE Ferritin 207.00 Vitamin B12 484.0 Folate 7.48 Urine Color Urine Appearance Urine pH Ur Specific [place] Urine Protein Urine Glucose (UA) Urine Ketones Urine Blood Urine Nitrite Ur Leukocyte Esterase Urine WBC (Auto) Urine RBC (Auto) Stool Occult Blood NEGATIVE 02/08/18 22:30 Foot - Right Heel Gram Stain - Final 02/08/18 22:30 Foot - Right Heel Wound Culture - Final Proteus Mirabilis Staphylococcus Aureus Streptococcus Constellatus No Anaerobic Organisms 02/09/18 02/14/18 13:05 04:40 NT-Pro-B Natriuret Pep 4920 H 4550 H Impressions: Foot X-Ray 02/07/18 23:17 IMPRESSION: 1. Osseous destruction of the fifth metatarsal and base of the proximal fifth phalanx. These findings suggest osteomyelitis. Correlation with contrast-enhanced MRI could provide additional characterization. Lower Extremity Ultrasound 02/08/18 00:00 IMPRESSION: NORMAL BILATERAL LOWER EXTREMITY ARTERIAL DOPPLER. Chest X-Ray 02/10/18 00:00 IMPRESSION: New left subclavian central venous catheter tip overlies the SVC above the level of the right atrium. No acute findings otherwise. Assessment & Plan - Diagnosis (1) A-fib Qualifiers: Atrial fibrillation type: chronic Qualified Code(s): I48.2 - Chronic atrial fibrillation Is this a current diagnosis for this admission?: Yes Plan: Stable. Continue present management. Continue eliquis (2) Acute kidney injury (nontraumatic) Is this a current diagnosis for this admission?: Yes Plan: Acute on chronic. Trend (3) Diabetic foot ulcer Qualifiers: Diabetic foot ulcer location: midfoot Diabetes mellitus type: type 2 Laterality: right Non-pressure ulcer stage: with necrosis of bone Qualified Code(s): E11.621 - Type 2 diabetes mellitus with foot ulcer; L97.414 - Non- pressure chronic ulcer of right heel and midfoot with necrosis of bone; L97.414 - Non-pressure chronic ulcer of right heel and midfoot with necrosis of bone; L97.414 - Non-pressure chronic ulcer of right heel and midfoot with necrosis of bone; L97.414 - Non-pressure chronic ulcer of right heel and midfoot with necrosis of bone Is this a current diagnosis for this admission?: Yes Plan: Continue multivitamins and vitamin C. BKA 02/10 and tolerated procedure well. Treatment rendered by amputation. Will need placement (4) Hyperglycemia Is this a current diagnosis for this admission?: Yes Plan: Decerease lantus and watch for hypoglycemia (5) Osteomyelitis Qualifiers: Osteomyelitis type: other acute Osteomyelitis location: foot Laterality: right Qualified Code(s): M86.171 - Other acute osteomyelitis, right ankle and foot Is this a current diagnosis for this admission?: Yes Plan: Source removed (6) Depression Qualifiers: Major depression episode severity: unspecified Is this a current diagnosis for this admission?: Yes Plan: Continue present treatment. Doing better (7) Chronic diastolic CHF (congestive heart failure) Is this a current diagnosis for this admission?: Yes Plan: Stable and to continue current regimen (8) Chronic pain syndrome Is this a current diagnosis for this admission?: Yes Plan: Continue present treatment (9) Sepsis Is this a current diagnosis for this admission?: Yes Plan: Due to Staphylococcus hominis. Patient also grew Streptococcus angionosus. Continue vancomycin IV. Patient informed will require 14 day course vancomycin. CM consulted for LTAC evaluation (10) Hypokalemia Is this a current diagnosis for this admission?: Yes Plan: Resolved (11) Hypotension Qualifiers: Hypotension type: unspecified hypotension type Qualified Code(s): I95.9 - Hypotension, unspecified Is this a current diagnosis for this admission?: Yes Plan: Resolved after fluid bolus (12) Anemia Qualifiers: Iron deficiency anemia type: chronic blood loss Is this a current diagnosis for this admission?: Yes Plan: Anemia panel in view of heme psotive stool. Will continue eliquis for now. Previously on coumadin. Improved after transfusing 1 pRBC. (13) Heme positive stool Is this a current diagnosis for this admission?: Yes Plan: Consult GI telecommunications repairer - Time Time Spent with patient: 15-24 minutes Medications reviewed and adjusted accordingly: Yes Anticipated discharge: Acute Rehab Within: when bed available - Inpatient Certification Based on my medical assessment, after consideration of the patient's comorbidities, presenting symptoms, or acuity I expect that the services needed warrant INPATIENT care.: Yes I certify that my determination is in accordance with my understanding of Medicare's requirements for reasonable and necessary INPATIENT services [42 CFR 412.3e].: Yes Medical Necessity: Significant Comorbidiites Make Outpatient Treatment Too Risky , Need Close Monitoring Due to Risk of Patient Decompensation, Need For Continuous Telemetry Monitoring
[2018-02-15] MEDS: OXYCODONE-ACETAMINOPHEN 5-325 MG TABLET PO PRN ×2 (05:40→16:27)
[2018-02-15] MEDS: MORPHINE SULFATE SR 30 MG TABLET PO SCH (09:46)
[2018-02-15] MEDS: POLYETHYLENE GLYCOL 3350 POWDER 17 GM/1 PACKET PO SCH (09:46)
[2018-02-15] MEDS: MULTIVITAMIN TABLET PO SCH (09:47)
[2018-02-15] MEDS: CLONAZEPAM 1 MG TABLET PO SCH (09:47)
[2018-02-15] MEDS: GABAPENTIN 300 MG CAPSULE PO SCH (09:48)
[2018-02-15] MEDS: DIGOXIN 0.25 MG TABLET PO SCH (09:48)
[2018-02-15] MEDS: ASCORBIC ACID 500 MG TABLET PO SCH (09:48)
[2018-02-15] MEDS: AMLODIPINE BESYLATE 10 MG TABLET PO SCH (09:49)
[2018-02-15] MEDS: ARIPIPRAZOLE 5 MG TABLET PO SCH (09:49)
[2018-02-15] MEDS: LISINOPRIL 10 MG TABLET PO SCH (09:50)
[2018-02-15] MEDS: METOPROLOL SUCCINATE 50 MG TAB.SR.24H PO SCH (09:50)
[2018-02-15] MEDS: VENLAFAXINE HCL 75 MG CAP.SR.24H PO SCH (09:57)
[2018-02-15] MEDS: DOCUSATE SODIUM 100 MG CAPSULE PO SCH (09:57)
[2018-02-15] MEDS ORDERED: INSULIN DETEMIR 100 UNIT/ML 3 ML PEN SUBCUT SCH (10:00)
[2018-02-15] MEDS: APIXABAN 5 MG TABLET PO SCH (10:38)
[2018-02-15 10:56] LABS: VANCOMYCIN,TROUGH 26.7 ug/mL (5.0-20.0)
[2018-02-15] MEDS ORDERED: PEG 3350/NA SULF,BICARB,CL/KCL 4000 ML PO ONE (15:00)
--- NOTE | 2018-02-15 15:05 | PDOC TRANSFER SUMMARY ---
General Admission Date/PCP: 02/08/18 03:38 Admission Date: 02/08/18 Transfer Date: 02/15/18 Accepting Facility: Other (Comments) - [facility] Resuscitation Status: Full Code - Transfer Diagnosis (1) Diabetic foot ulcer Is this a current diagnosis for this admission?: Yes (2) Osteomyelitis Is this a current diagnosis for this admission?: Yes (3) Sepsis Is this a current diagnosis for this admission?: Yes (4) Acute kidney injury (nontraumatic) Is this a current diagnosis for this admission?: Yes (5) A-fib Is this a current diagnosis for this admission?: Yes (6) Hyperglycemia Is this a current diagnosis for this admission?: Yes (7) Depression Is this a current diagnosis for this admission?: Yes (8) Chronic diastolic CHF (congestive heart failure) Is this a current diagnosis for this admission?: Yes (9) Chronic pain syndrome Is this a current diagnosis for this admission?: Yes (10) Hypokalemia Is this a current diagnosis for this admission?: Yes (11) Hypotension Is this a current diagnosis for this admission?: Yes (12) Anemia Is this a current diagnosis for this admission?: Yes (13) Heme positive stool Is this a current diagnosis for this admission?: Yes (14) Hyponatremia Is this a current diagnosis for this admission?: Yes - Transfer Medications Home Medications: Aspirin [Aspirin EC] 81 mg PO DAILY 02/08/18 Digoxin [Digitek] 250 mcg PO DAILY 02/08/18 Pravastatin Sodium [Pravachol] 20 mg PO QHS 02/08/18 Warfarin Sodium [Coumadin 5 mg Tablet] 5 mg PO Q48H PRN MDD see patient comments 02/08/18 Warfarin Sodium [Coumadin 7.5 mg Tablet] 7.5 mg PO Q48H MDD see patient comments 02/08/18 Transfer Medications: Current Medications Acetaminophen (Tylenol 325 Mg Tablet) 325 mg PO Q4HP PRN PRN Reason: FOR PAIN OR TEMP Stop: 03/10/18 04:23 Al Hydrox/Mg Hydrox/Simethicone (Maalox Plus Susp 30 Udcup) 30 ml PO Q6HP PRN PRN Reason: HEARTBURN Stop: 03/10/18 04:23 Albuterol/Ipratropium (Duoneb 3 Ml Ampul) 3 ml NEB [id number] PRN PRN Reason: SHORTNESS OF BREATH Stop: 03/10/18 04:23 Amlodipine Besylate (Norvasc 10 Mg Tablet) 5 mg PO DAILY [facility] Stop: 03/15/18 09:59 Last Admin: 02/15/18 09:49 Dose: 5 mg Apixaban (Eliquis 5 Mg Tablet) 5 mg PO BID [facility] Stop: 03/13/18 09:59 Last Admin: 02/15/18 10:38 Dose: Not Given Aripiprazole (Abilify 5 Mg Tablet) 5 mg PO DAILY [facility] Stop: 03/11/18 09:59 Last Admin: 02/15/18 09:49 Dose: 5 mg Ascorbic Acid (Vitamin C 500 Mg Tablet) 500 mg PO BID [facility] Stop: 03/10/18 17:59 Last Admin: 02/15/18 09:48 Dose: 500 mg Clonazepam (Klonopin 1 Mg Tablet) 1 mg PO Q12 [facility] Stop: 02/17/18 09:59 Last Admin: 02/15/18 09:47 Dose: 1 mg Dextrose (Dextrose Inj 50% Syringe (25 Gm/50 Ml)) 12.5 gm IV PRN PRN; Protocol PRN Reason: FOR BG 50-69 IN ALERT PATIENT Stop: 03/10/18 01:05 Last Admin: 02/13/18 06:38 Dose: 12.5 gm Dextrose (Dextrose Inj 50% Syringe (25 Gm/50 Ml)) 25 gm IV PRN PRN; Protocol PRN Reason: PER PROTOCOL Stop: 03/10/18 01:05 Last Admin: 02/12/18 06:30 Dose: 25 gm Digoxin (Lanoxin 0.25 Mg Tablet) 0.25 mg PO DAILY [facility] Stop: 03/12/18 09:59 Last Admin: 02/15/18 09:48 Dose: 0.25 mg Docusate Sodium (Colace 100 Mg Capsule) 100 mg PO BID [facility] Stop: 03/10/18 09:59 Last Admin: 02/15/18 09:57 Dose: Not Given Gabapentin (Neurontin 300 Mg Capsule) 600 mg PO Q12 [facility] Stop: 03/13/18 21:59 Last Admin: 02/15/18 09:48 Dose: 600 mg Glucagon (Glucagen Inj 1 Mg Vial) 1 mg IM PRN PRN; Protocol PRN Reason: Evaluate for BG < 70 Stop: 03/10/18 01:05 Glucose (Glutose 40% Gel 15 Gm Tube) 15 gm PO PRN PRN; Protocol PRN Reason: FOR BG 50-69 IN ALERT PATIENT Stop: 03/10/18 01:05 Last Admin: 02/12/18 05:55 Dose: 15 gm Glucose (Glutose 40% Gel 15 Gm Tube) 30 gm PO PRN PRN; Protocol PRN Reason: FOR BG < 50 IN ALERT PATIENT Stop: 03/10/18 01:05 Heparin Sodium (Porcine) (Heparin Flush 10 Unit/Ml 5 Ml Disp.Syrg) 30 unit IV Q8 [facility] Stop: 03/15/18 21:59 Last Admin: 02/15/18 05:38 Dose: 30 unit Heparin Sodium (Porcine) (Heparin Flush 10 Unit/Ml 5 Ml Disp.Syrg) 30 unit IV .AFTER EACH USE PRN PRN Reason: AFTER EACH INTERMITTENT USE Stop: 03/15/18 17:39 Last Admin: 02/14/18 21:13 Dose: 30 unit Vancomycin HCl 1,250 mg/ (Dextrose) 250 mls @ 166.667 mls/hr IV Q12 [facility] Stop: 02/19/18 21:59 Last Admin: 02/14/18 11:53 Dose: 1,250 mg Insulin Detemir (Levemir Insulin 300 Units/3 Ml Insuln.Pen) 15 unit SUBCUT Q12 [facility] Stop: 03/14/18 09:59 Last Admin: 02/15/18 10:37 Dose: 15 unit Insulin Human Lispro (Humalog Insulin 100 Unit/1 Ml 3 Ml Vial) 0 - 12 unit SUBCUT Q6HP PRN; Protocol PRN Reason: PER PROTOCOL Stop: 03/10/18 01:05 Last Admin: 02/11/18 12:43 Dose: 2 unit Lisinopril (Prinivil 10 Mg Tablet) 10 mg PO DAILY [facility] Stop: 03/15/18 09:59 Last Admin: 02/15/18 09:50 Dose: 10 mg Lorazepam (Ativan Inj 2 Mg/1 Ml Vial) 1 mg IV Q8HP PRN PRN Reason: ANXIETY/AGITATION Stop: 02/17/18 09:50 Last Admin: 02/10/18 11:44 Dose: 1 mg Metoprolol Succinate (Toprol Xl 50 Mg Tab.Sr) 50 mg PO DAILY [facility] Stop: 03/15/18 09:59 Last Admin: 02/15/18 09:50 Dose: 50 mg Morphine Sulfate (Morphine 10 Mg/Ml Inj) 4 mg IV Q3HP PRN PRN Reason: PAIN Stop: 02/18/18 00:13 Last Admin: 02/13/18 20:27 Dose: 4 mg Morphine Sulfate (Ms-Contin Sr 30 Mg Tablet) 30 mg PO Q12 [facility] Stop: 02/18/18 21:59 Last Admin: 02/15/18 09:46 Dose: 30 mg Multivitamins (Tab-A-Zechariah (Multiple Vitamin) Tablet) 1 tab PO DAILY [facility] Stop: 03/11/18 09:59 Last Admin: 02/15/18 09:47 Dose: 1 tab Ondansetron HCl (Zofran Inj/Pf 4 Mg/2 Ml Sdv) 4 mg IV Q4HP PRN PRN Reason: nausea/vomiting Stop: 03/12/18 19:09 Oxycodone/Acetaminophen (Percocet 5-325 Mg Tablet) 1 tab PO Q4HP PRN PRN Reason: FOR PAIN SCALE 3-4 Stop: 02/22/18 04:35 Last Admin: 02/15/18 05:40 Dose: 1 tab Polyethylene Glycol (Miralax Powder 17 Gm/Packet) 17 gm PO DAILY [facility] Stop: 03/12/18 09:59 Last Admin: 02/15/18 09:46 Dose: 17 gm Polyethylene Glycol/Electrolytes (Golytely Solution 4000 Ml) 4,000 ml PO DARIO@ 1500 ONE Stop: 02/15/18 15:01 Venlafaxine HCl (Effexor Xr 75 Mg Cap.Sr) 75 mg PO DAILY [facility] Stop: 03/12/18 09:59 Last Admin: 02/15/18 09:57 Dose: 75 mg - Allergies Allergies/Adverse Reactions: No Known Allergies Allergy (Unverified 02/07/18 23:02) - Diet/Activity Discharge Diet: Cardiac, Diabetic Hospital Course Hospital Course: GERALDINE TIRADO is a 57 year old male with past medical history of insulin- dependent diabetes, congestive heart failure, atrial fibrillation on Coumadin, chronic pain on morphine, osteomyelitis of the left hand and right foot, obesity and debility. In the emergency room he was found to have hypotension that responded to bolus, a fever of 100.5, right foot diabetic foot ulcer which is foul-smelling and necrotic exudate. His mental status returned to baseline without intervention. Denied deficits or weakness. Labs revealed acute renal failure, hyponatremia and he was referred to the hospitalist for admission. Patient was admitted to [facility]. Patient was evaluated by surgery who recommended for patient to underwent right BKA due to the extensive nature of necrotic tissue in his right foot. Wound culture grew MRSA and Proteus mirabilis. He initially was started on Zosyn and vancomycin. We had to reverse Coumadin and he was administered vitamin K and 2 units of fresh frozen plasma. 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 We at that time opted to discontinue Zosyn. We continue vancomycin since blood culture grew Staphylococcus hominis and Streptococcus sanguinous. Patient is to continue on vancomycin until February 22. At the present time, vancomycin had been held due to elevated trough. Recommend incoming facility to follow up in this regard. Echocardiogram that had been obtained on admission in anticipation for patient to undergo surgery did not show any vegetations. Hemoglobin showed a downward trend and patient was transfused 1 unit of packed red blood cell which he tolerated well. Hemoglobin then stabilized. Patient tested positive for occult blood. We held apixaban which had been started after surgery instead of coumadin. Gastroenterology service was consulted and was anticipated to proceed with diagnostic procedures. We then learned that patient had been accepted at [facility] and that they could pursue further investigation. Hyponatremia improved and was deemed to be multifactorial including septic process. Renal function had been trended and patient does show a pattern of acute on chronic renal failure. Patient does suffer from chronic diastolic congestive heart failure and was stable while hospitalized by controlling fluids and blood pressure. Atrial fibrillation has remained stable while hospitalized. Patient does suffer from depression and chronic pain syndrome. We adjusted his medication and placed him on Effexor and Abilify with improvement of his overall mood and sleeping pattern. We were also able to decrease the amount of opioid medication by adding gabapentin. Blood sugar levels have been managed through diet, long-acting, pre-meal Humalog and sliding scale. We have been able to achieve better control by removing source of infection and as well providing him dietary measures. Patient had improved and has remained stable during his hospitalization stay however will need further continuation of antibiotic therapy and rehabilitation after BKA. Physical Exam Vital Signs: Temp Pulse Resp BP Pulse Ox 98.3 F 74 18 128/65 H 96 02/15/18 07:31 02/15/18 07:31 02/15/18 07:31 02/15/18 07:31 02/15/18 11:02 Intake & Output 02/14/18 02/15/18 02/16/18 06:59 06:59 06:59 Intake Total 2993 845 236 Output Total 1200 1951 0 Balance 1793 -1106 236 Weight 129.6 kg 128.7 kg General appearance: PRESENT: no acute distress, cooperative, morbidly obese Head exam: PRESENT: atraumatic Eye exam: PRESENT: conjunctiva pink, EOMI, PERRLA Ear exam: PRESENT: normal external ear exam Mouth exam: PRESENT: moist Teeth exam: PRESENT: poor dentation Neck exam: PRESENT: full ROM. ABSENT: JVD, lymphadenopathy, tenderness Respiratory exam: PRESENT: clear to auscultation terra Cardiovascular exam: PRESENT: irregular rhythm. ABSENT: diastolic murmur, systolic murmur Vascular exam: PRESENT: normal capillary refill GI/Abdominal exam: PRESENT: normal bowel sounds, soft. ABSENT: tenderness Extremities exam: PRESENT: full ROM, other - Right BKA. There is a 2+ edema of left lower extremity Musculoskeletal exam: ABSENT: ambulatory Neurological exam: PRESENT: alert, awake, oriented to person, oriented to place , oriented to time, oriented to situation, CN II-XII grossly intact Psychiatric exam: PRESENT: appropriate affect, normal mood Skin exam: PRESENT: intact, normal color Results Laboratory Results: 02/14/18 04:40 02/14/18 04:40 02/14/18 02/14/18 02/15/18 04:40 04:40 04:00 Iron < 10.1 L TIBC 184 L % Saturation UNABLE TO CALCULATE Transferrin 101 L Ferritin 207.00 Vitamin B12 484.0 Folate 7.48 Stool Occult Blood NEGATIVE 02/09/18 02/14/18 13:05 04:40 NT-Pro-B Natriuret Pep 4920 H 4550 H Impressions: Foot X-Ray 02/07/18 23:17 IMPRESSION: 1. Osseous destruction of the fifth metatarsal and base of the proximal fifth phalanx. These findings suggest osteomyelitis. Correlation with contrast-enhanced MRI could provide additional characterization. Lower Extremity Ultrasound 02/08/18 00:00 IMPRESSION: NORMAL BILATERAL LOWER EXTREMITY ARTERIAL DOPPLER. Chest X-Ray 02/10/18 00:00 IMPRESSION: New left subclavian central venous catheter tip overlies the SVC above the level of the right atrium. No acute findings otherwise. Plan Discharge Plan: Transfer to [facility]. Arrangements made by case management. Patient is stable at the time of transfer Time Spent: Greater than 30 Minutes
[2018-02-15 16:49] VITALS: BP 128/76
[2018-02-15] MEDS ORDERED: APIXABAN 5 MG TABLET PO ONE (18:00)
== END 2018-02-15 17:08 | DRG 616 ==
LOC: ER 22:38 → EH 02-08 03:38 → 3S 02-08 08:08
PROVIDERS: ADMIT Internal Medicine; ATTEND Internal Medicine
PROC: 0HBMXZZ Excision of Right Foot Skin, External Approach (ICD-10-PCS; 2018-02-08)
PROC: 30233K1 Transfusion of Nonautologous Frozen Plasma into Peripheral Vein, Percutaneous Approach (ICD-10-PCS; 2018-02-09)
PROC: 02HV33Z Insertion of Infusion Device into Superior Vena Cava, Percutaneous Approach (ICD-10-PCS; 2018-02-10)
PROC: 0Y6H0Z2 Detachment at Right Lower Leg, Mid, Open Approach (ICD-10-PCS; principal; 2018-02-10 16:45)
PROC: 30233N1 Transfusion of Nonautologous Red Blood Cells into Peripheral Vein, Percutaneous Approach (ICD-10-PCS; 2018-02-13)
DX: E10.621 Type 1 diabetes mellitus with foot ulcer (principal); A41.1 Sepsis due to other specified staphylococcus; L03.115 Cellulitis of right lower limb; L97.414 Non-pressure chronic ulcer of right heel and midfoot with necrosis of bone; M86.171 Other acute osteomyelitis, right ankle and foot; E87.1 Hypo-osmolality and hyponatremia; I50.32 Chronic diastolic (congestive) heart failure; N17.9 Acute kidney failure, unspecified; I48.2 Chronic atrial fibrillation; I11.0 Hypertensive heart disease with heart failure; E10.65 Type 1 diabetes mellitus with hyperglycemia; E10.69 Type 1 diabetes mellitus with other specified complication; D50.0 Iron deficiency anemia secondary to blood loss (chronic); E87.6 Hypokalemia; F32.9 Major depressive disorder, single episode, unspecified; G89.4 Chronic pain syndrome; I95.9 Hypotension, unspecified; R41.82 Altered mental status, unspecified; Z79.01 Long term (current) use of anticoagulants; Z89.022 Acquired absence of left finger(s); Z79.84 Long term (current) use of oral hypoglycemic drugs; Z79.82 Long term (current) use of aspirin; Z79.899 Other long term (current) drug therapy
CPT/HCPCS: 01482; 36415; 36430; 71045; 80048; 80053; 80162; 80202; 81001; 82272; 82565; 82607; 82728; 82746; 82803; 82962; 83540; 83550; 83605; 83735; 83880; 84132; 84466; 84484; 85025; 85027; 85045; 85610; 85730; 86850; 86900; 86901; 86920; 87040; 87070; 87075; 87077; 87186; 87205; 87493; 88307; 88311; 93005; 93010; 93306; 93925; 96361; 96365; 96366; 96367; 99291; C1751; G8978-GP; G8979-GP; J0131; J0330; J1642; J1644; J1815; J1940; J2060; J2250; J2270; J2543; J2704; J3010; J3370; J3430; J3480; J3490; J7030; J7040; J7060; J7120; L1830; P9016; P9017